=== PATIENT | male | born 1950 | race Caucasian/White ===

== ENCOUNTER 2022-03-11 14:56 | Inpatient (IN) ==
--- NOTE | 2022-03-11 15:08 | Emergency Department Note ---
Weakness HPI <Segun FarrellSARAI - Last Filed: 03/11/22 20:06> General Chief complaint: Weakness Stated complaint: lethargic, confusion Time Seen by Provider: 03/11/22 15:00 Mode of arrival: EMS Limitations: altered mental status History of Present Illness HPI Narrative: Narrative: Patient is a 71-year-old male who comes into the emergency department today by EMS due to confusion and family has noticed that he is tired. Patient has history of carotid arthrosclerosis, coronary artery disease, chronic kidney disease on hemodialysis, and subdural hematoma in 2018. Patient recently had COVID-19 a couple weeks ago and is slowly recovering from this. His daughter is with him today, and she reports that the patient has had slowly increasing drowsiness and mild confusion over the last couple of days. She states on Saturday last week patient was prescribed tramadol and baclofen by his PCP which is a new medication for him, and he started taking a couple doses of this over the weekend for pain. Patient's daughter reports that he has not had any falls or injuries. Patient denies having any falls that he is aware of. Patient has went to hemodialysis and has not had any other medication changes. He has not had any fevers or chills. He denies any chest pain, shortness of breath, or difficulty breathing. He has not had any abdominal pain and his appetite has been normal. He denies any headaches today or vision changes. Patient denies any numbness or tingling. Related Data Home Medications Medication Instructions Recorded Confirmed aspirin 81 mg tablet,delayed 81 mg PO QDAY tab 03/04/15 03/11/22 release primidone 50 mg tablet 75 mg PO BID tab 03/29/20 03/11/22 clopidogrel 75 mg tablet (Plavix) 75 mg PO QDAY 03/22/21 03/11/22 lisinopril 5 mg tablet 5 mg PO QDAY 03/09/22 03/11/22 sucroferric oxyhydroxide 500 mg 500 mg PO TID 03/11/22 03/11/22 chewable tablet (Velphoro) Previous Rx's Medication Instructions Recorded CPAP Machine and Associated #1 each 11/14/17 supplies pantoprazole 40 mg tablet,delayed 40 mg PO BID 60 Days #120 tab 12/22/20 release atorvastatin 40 mg tablet (Lipitor) 40 mg PO QDAY #90 tab 11/29/21 metoprolol succinate 25 mg 12.5 mg PO QDAY #60 tab 02/15/22 tablet,extended release 24 hr baclofen 5 mg tablet 5 mg PO TID PRN #20 tab 03/09/22 budesonide 90 mcg/actuation breath 2 inh INHALATION BID #1 ea 03/09/22 activated powder inhaler (Pulmicort Flexhaler) tramadol 50 mg tablet 50 mg PO BID PRN #30 tab 03/09/22 Allergies Allergy/AdvReac Type Severity Reaction Status Date / Time morphine AdvReac Mild Nausea Verified 03/09/22 16:01 Review of Systems <SARAI Vergara - Last Filed: 03/11/22 20:06> ROS ROS Narrative: Narrative: All systems ED: reviewed and negative except as stated. PFSH <SARAI Vergara - Last Filed: 03/11/22 20:06> Narrative Patient History Narrative: Narrative: Medical/Surgical/Family History All Active Problems (Updated 03/12/22 @ 08:33 by Odell Tavares MD) Arthritis, rheumatoid (Chronic) Bladder neck obstruction (Chronic) Carotid artery occlusion (Chronic) History of colonic polyps (Chronic) Conjunctival hemorrhage (Chronic) Coronary artery disease (Chronic) Coronary atherosclerosis (Chronic) Diabetes mellitus, type II (Chronic) Erectile dysfunction (Chronic) Gastroesophageal reflux (Chronic) Hearing loss, sensorineural (Chronic) Hyperlipidemia (Chronic) Hypertension, essential (Chronic) Hypothyroidism (acquired) (Chronic) Kidney stones (Chronic) Hx of renal calculi (Chronic) Nephrotic syndrome with pathological lesion in kidney (Chronic) Nuclear sclerosis (Chronic) Obesity (Chronic) Obstructive sleep apnea (Chronic) Peripheral neuropathy (Chronic) Retinopathy, diabetic, background (Chronic) Secondary hyperparathyroidism of renal origin (Chronic) Vitamin D deficiency (Chronic) Obstructive sleep apnea treated with continuous positive airway pressure (CPAP) (Chronic) Shoulder sprain (Chronic) Foreign body in skin (Chronic) Anemia (Chronic) Essential tremor (Chronic) Renal cyst (Chronic) Hypertension (Chronic) Sicca syndrome (Chronic) Impingement syndrome of unspecified shoulder (Chronic) Primary generalized (osteo)arthritis (Chronic) Other intervertebral disc degeneration, lumbar region (Chronic) BMI 33.0-33.9,adult (Chronic) Encounter for long-term (current) use of medications (Chronic) Back pain (Chronic) Shingles (Chronic) Rotator cuff disorder (Chronic) Joint pain (Chronic) Other mattress filler (current) drug therapy (Chronic) Encounter for long-term (current) use of high-risk medication (Chronic) Left shoulder pain (Chronic) Subdural hematoma (Chronic ~2018) Closed head injury (Chronic) Osteoarthritis (Chronic) Chest pain (Chronic) Acute coronary syndrome (Chronic) Upper GI bleeding (Chronic ~2019) Abdominal pain (Chronic) Elevated C-reactive protein (CRP) (Chronic) Trigger thumb of right hand (Chronic) ESRD on hemodialysis (Chronic) Medicare annual wellness visit, subsequent (Chronic) History of angiography (Chronic ~08/23/20) Kidney transplant candidate (Acute) Medicare annual wellness visit, subsequent (Acute) BPH associated with nocturia (Acute) Annual physical exam (Acute) Hypoxia (Acute) Fluid overload (Acute) Encounter for venous access device care (Acute) Tinea cruris (Acute) Sacroiliac joint dysfunction of right side (Acute) Status post transcatheter aortic valve replacement (Acute) Peripheral vascular disease (Acute) Post-COVID chronic cough (Acute) Acute delirium (Acute) Acute alteration in mental status (Acute) Chronic kidney disease (Acute) ESRD on hemodialysis (Chronic) Acute on chronic systolic CHF (congestive heart failure) (Acute) Medical History Anemia Annual physical exam Arthritis, rheumatoid Back pain Bladder neck obstruction BMI 33.0-33.9,adult BPH associated with nocturia Carotid artery occlusion Chronic Kidney Disease Stage V Chronic kidney disease, stage IV (severe) most recent s.creat is 4.1 which equals to egfr of 15ml/min per MDRD equation s.creat fluctuates between 3.8-4.2 recently, stable for now Patient will go for incenter dialysis when and if needed his vein mapping showed b/l narrowing of axiallry and subclavian arteries and given this we cannot pursue AVF surgery and he will need arteriogram and revascularisation procedure before this, this will need contrast which can further damage his renal function, as discussed with Dr Reeves Chronic kidney disease, stage V Conjunctival hemorrhage Coronary artery disease status post coronary artery bypass graft in 2008 Coronary atherosclerosis Coronary atherosclerosis Diabetes mellitus, type II No further hypoglycemic episodes, a1c is 5.2% He is on glipizide; he monitors what he eats; BSs are much improved with FBS of ~ 120 ct with current meds Will monitor Encounter for long-term (current) use of high-risk medication Encounter for long-term (current) use of medications Erectile dysfunction ESRD on hemodialysis Foreign body in skin Gastroesophageal reflux Hearing loss, sensorineural History of colonic polyps Hx of renal calculi Hyperlipidemia Hypertension Hypertension, essential Hypothyroidism (acquired) Impingement syndrome of unspecified shoulder Joint pain Kidney stones Left shoulder pain Medicare annual wellness visit, subsequent Medicare annual wellness visit, subsequent Nephrotic syndrome with pathological lesion in kidney Nuclear sclerosis Obesity Obstructive sleep apnea Obstructive sleep apnea treated with continuous positive airway pressure (CPAP) Osteoarthritis Other intervertebral disc degeneration, lumbar region Other mattress filler (current) drug therapy Peripheral neuropathy Postural hypotension Primary generalized (osteo)arthritis Renal cyst Retinopathy, diabetic, background Rotator cuff disorder Secondary hyperparathyroidism of renal origin Shingles Shoulder sprain Sicca syndrome Tinea cruris Trigger thumb of right hand Vitamin D deficiency Surgical History H/O coronary angiogram (~08/23/20) H/O renal calculi right removal History of angiography (~08/23/20) Left subclavian, PCI to the PDA via the patent saphenous vein graft with a 2.25 x 24 Synergy drug-eluting stent History of carotid endarterectomy bilateral in 2008 History of left heart catheterization (LHC) (12/29/17) left heart cath, ventricular angiography, internal mammary artery graft angiopraphy History of right-sided carotid endarterectomy (~2008) History of surgery (01/30/16) Bilateral upper extremity vein mapping History of surgery (04/25/17) 01/10/2017 Fistulogram; 04/25/2017 Fistulogram, catheter placement - attempted dialysis access declot History of transcatheter aortic valve replacement (TAVR) (01/09/22) Hx of arthroscopy of right knee Hx of CABG (~01/2009) 3 vessel Hx of colonoscopy 12/19/2009 Family History Father , 67 Diabetes mellitus DMII. has Heart disease sister Malignant neoplasm Grandmother Rheumatoid arthritis Family/Other Hypertension Stroke Other Kidney stone Social History Smoking Status: Former smoker Alcohol Intake Frequency: former alcohol drinker Substance Use: does not use Exam <Miles SARAI Adkins - Last Filed: 03/11/22 20:06> Narrative Narrative: Narrative: General Limitations: altered mental status General appearance: Present alert, in no apparent distress and sleepy Head Head: Present atraumatic and normocephalic Eye Eye: Present normal appearance, PERRL and EOMI; Absent scleral icterus, conjunctival injection or nystagmus ENT ENT: Present normal oropharynx Neck Neck: Present normal inspection and full ROM; Absent meningismus Chest Chest: Present normal inspection and symmetric chest wall rise Respiratory Respiratory: Present normal lung sounds bilaterally and rales/crackles (Mild crackles bilateral lower lobes.); Absent respiratory distress, wheezes or accessory muscle use Cardiovascular Cardiovascular: Present regular rate, normal rhythm, normal heart sounds and other (Bruit auscultated and thrill palpated to the fistula right arm.); Absent systolic murmur or diastolic murmur Adbominal Abdominal: Present soft and normal bowel sounds; Absent distention, tenderness, guarding, rebound, rigidity, organomegaly, Ragland's sign or ascites Extremities Extremities: Present normal inspection, full ROM, normal capillary refill and pedal edema (2+); Absent calf tenderness or cyanosis Back Back: Present normal inspection and full ROM; Absent CVA tenderness (R), CVA tenderness (L) or spinous process tenderness Neurological Neurological: Present alert and CN II-XII intact; Absent motor sensory deficit Expanded Neurological Patient oriented to: Present person and place; Absent time Speech: Present fluid speech CRANIAL NERVES: EOM function (II, III, IV, ): Normal, facial sensation (V): N ormal, facial palsy (VII): Normal, gag reflex (IX): Normal, spinal accessory function (XI): Normal and tongue deviation (XII): Normal CEREBELLAR FUNCTION: finger to nose: Normal and heel to liu: Normal Motor strength - LUE: 5/5 Motor strength - RUE: 5/5 Motor strength - LLE: 5/5 Motor strength - RLE: 5/5 SENSORY EXAM UPPER EXTREMITY: Normal: light touch SENSORY EXAM LOWER EXTREMITY: Normal: light touch Coma Scale Eye Opening: To Voice Coma Scale Motor Response: Obeys Commands Coma Scale Verbal Response: Confused Coma Scale Total: 13 Skin Skin: Present warm (WNL), dry and normal color <Chris Keene MD - Last Filed: 03/12/22 15:16> Expanded Neurological Coma Scale Total: 13 Course <SARAI Vergara - Last Filed: 03/11/22 20:06> Vital Signs Vital signs: Vital Signs Temperature 98.2 F 03/11/22 15:08 Pulse Rate 87 03/11/22 15:08 Respiratory Rate 16 03/11/22 15:08 Blood Pressure 136/98 03/11/22 15:08 Pulse Oximetry (%) 95 03/11/22 15:08 Temperature 98.4 F 03/12/22 12:45 Pulse Rate 93 H 03/12/22 15:00 Respiratory Rate 14 03/12/22 12:00 Blood Pressure 151/64 03/12/22 15:00 Pulse Oximetry (%) 97 03/12/22 12:00 <Chris Keene MD - Last Filed: 03/12/22 15:16> Vital Signs Vital signs: Vital Signs Temperature 98.2 F 03/11/22 15:08 Pulse Rate 87 03/11/22 15:08 Respiratory Rate 16 03/11/22 15:08 Blood Pressure 136/98 03/11/22 15:08 Pulse Oximetry (%) 95 03/11/22 15:08 Temperature 98.4 F 03/12/22 12:45 Pulse Rate 93 H 03/12/22 15:00 Respiratory Rate 14 03/12/22 12:00 Blood Pressure 151/64 03/12/22 15:00 Pulse Oximetry (%) 97 03/12/22 12:00 MDM <SARAI Vergara - Last Filed: 03/11/22 20:06> MDM Narrative Medical decision making narrative: Narrative: Patient is a 71-year-old male who arrived by EMS today after his family had noticed increased lethargic and confusion over the last 48 hours. FAST exam today is negative. Proceeded with noncontrast head CT, labs, and EKG. Patient recently was prescribed tramadol by his primary care provider, and patient was given 0.4 mg of IV Narcan today. I was able to review the prescription monitori ng report, and patient does not receive any chronic opiate prescription that likely would not cause any precipitated withdrawal syndrome with the patient. After administering the Narcan patient did not appear to slightly become more responsive. This however did not last very long. Noncontrast head CT today was read by Dr. Soni, and called with results indicating that the noncontrast head CT is negative for any acute finding. Chest x-ray shows moderate CHF without any infiltrate or other abnormality. EKG today did not show any acute coronary syndrome findings. Patient's sinus rhythm with left bundle branch block. CBC shows mild anemia likely related from chronic kidney disease which does show some improvement from a month ago when compared to previous labs. No leukocytosis. Patient's blood gas shows mild respiratory alkalosis. Patient's oxygen saturations are around 90% on room air. Patient was given 2 L of O2 today. Patient's lactic acid is 1.1. No significant electrolyte abnormality on his CMP. Alkaline phos 149 with AST 14 and ALT 10. Ammonia level is 33. TSH and free T4 normal. There does not appear to be any metabolic sign of the acute delirium seen on his work-up today. I was able to consult with Dr. Tavares who is on-call today for nephrology. He does report that this patient does see Dr. Dias, but he does agree that if patient needs hemodialysis today we will plan on hemodialysis tomorrow as an inpatient if he is admitted. I Was able to speak with the intern product marketing manager, and my clinical impression today is possible delirium related to the tramadol and baclofen use that he had recently started as this is poorly hemodialyzed. Nephrology recommended do not give any other sedating medication to the patient during the hospitalization stay if he is admitted. He would agree to completing hemodialysis tomorrow as needed for the patient. I had consulted with the hospitalist, Dr. Sherman here at [facility] today, and he does except to admit patient to the hospital today inpatient MedSurg. Lab Data Result diagrams: 03/12/22 05:28 03/12/22 05:28 Labs: Lab Results 03/11/22 03/11/22 03/11/22 Range/Units 15:24 15:24 15:24 WBC 8.1 (4.5-11.0) K/mcL RBC 3.19 L (4.63-6.08) M/mcL Hgb 9.8 L (13.7-17.5) g/dL Hct 32.6 L (40.1-51.0) % MCV 102.2 H (80.0-100.0) fL MCH 30.7 (26.0-34.0) pg MCHC 30.1 L (31.0-36.0) g/dL RDW 21.5 H (11.5-14.5) % Plt Count 279 (140-440) K/mcL MPV 10.1 (7.4-10.4) fL Neut % (Auto) 72.1 (38.0-78.0) % Lymph % (Auto) 13.6 L (15.5-49.0) % [place] % (Auto) 12.0 (1.0-12.0) % Eos % (Auto) 1.4 (0.0-7.0) % Baso % (Auto) 0.9 (0.0-2.0) % Lymph # (Auto) 1.10 L (1.50-4.80) K/mcL [place] # (Auto) 0.97 H (0.10-0.90) K/mcL Eos # (Auto) 0.11 (0.00-0.70) K/mcL Baso # (Auto) 0.07 (0.00-0.30) K/mcL Absolute Neutrophils 5.82 (1.80-8.00) K/mcL POC VBG pH (7.32-7.42) POC VBG pCO2 at Temp (41-51) POC VBG pO2 (25-40) POC VBG HCO3 (24-28) POC VBG Total CO2 (25-29) POC Venous O2 Sat (40-70) POC VBG Base Excess (-2-2) VBG Lactic Acid 1.1 (0.5-2.0) mmol/L Sodium 137 (133-145) mmol/L Potassium 3.4 (3.3-5.1) mmol/L Chloride 96 (96-108) mmol/L Carbon Dioxide 28 (22-30) mmol/L Anion Gap 13.0 (8.0-16.0) BUN 36 H (8-23) mg/dL Creatinine 5.9 H* (0.7-1.2) mg/dL GFR Calculation 9 Glucose 122 H (70-105) mg/dL POC Venous Lactate (0.5-2) Calcium 8.4 L (8.6-10.4) mg/dL Total Bilirubin 0.6 (0.1-1.0) mg/dL AST 14 (<40) U/L ALT 10 (<40) U/L Alkaline Phosphatase 149 H (39-117) U/L Ammonia (16-60) umol/L Total Protein 7.7 (5.9-8.4) gm/dL Albumin 3.5 (3.2-5.2) gm/dL Globulin 4.2 H (2.2-3.7) gm/dL Albumin/Globulin Ratio 0.8 L (1.0-2.3) TSH (0.27-5.01) uIU/mL Free T4 (0.93-1.70) ng/dL Acetaminophen ug/mL Ethyl Alcohol mg/dL < 10.0 mg/dL Ethyl Alcohol g/dL < 0.010 (<0.010) gm/dL 03/11/22 03/11/22 03/11/22 Range/Units 15:24 15:33 15:33 WBC (4.5-11.0) K/mcL RBC (4.63-6.08) M/mcL Hgb (13.7-17.5) g/dL Hct (40.1-51.0) % MCV (80.0-100.0) fL MCH (26.0-34.0) pg MCHC (31.0-36.0) g/dL RDW (11.5-14.5) % Plt Count (140-440) K/mcL MPV (7.4-10.4) fL Neut % (Auto) (38.0-78.0) % Lymph % (Auto) (15.5-49.0) % [place] % (Auto) (1.0-12.0) % Eos % (Auto) (0.0-7.0) % Baso % (Auto) (0.0-2.0) % Lymph # (Auto) (1.50-4.80) K/mcL [place] # (Auto) (0.10-0.90) K/mcL Eos # (Auto) (0.00-0.70) K/mcL Baso # (Auto) (0.00-0.30) K/mcL Absolute Neutrophils (1.80-8.00) K/mcL POC VBG pH (7.32-7.42) POC VBG pCO2 at Temp (41-51) POC VBG pO2 (25-40) POC VBG HCO3 (24-28) POC VBG Total CO2 (25-29) POC Venous O2 Sat (40-70) POC VBG Base Excess (-2-2) VBG Lactic Acid (0.5-2.0) mmol/L Sodium (133-145) mmol/L Potassium (3.3-5.1) mmol/L Chloride (96-108) mmol/L Carbon Dioxide (22-30) mmol/L Anion Gap (8.0-16.0) BUN (8-23) mg/dL Creatinine (0.7-1.2) mg/dL GFR Calculation Glucose (70-105) mg/dL POC Venous Lactate (0.5-2) Calcium (8.6-10.4) mg/dL Total Bilirubin (0.1-1.0) mg/dL AST (<40) U/L ALT (<40) U/L Alkaline Phosphatase (39-117) U/L Ammonia 33 (16-60) umol/L Total Protein (5.9-8.4) gm/dL Albumin (3.2-5.2) gm/dL Globulin (2.2-3.7) gm/dL Albumin/Globulin Ratio (1.0-2.3) TSH 0.70 (0.27-5.01) uIU/mL Free T4 1.29 (0.93-1.70) ng/dL Acetaminophen < 5.0 ug/mL Ethyl Alcohol mg/dL mg/dL Ethyl Alcohol g/dL (<0.010) gm/dL 03/11/22 Range/Units 15:55 WBC (4.5-11.0) K/mcL RBC (4.63-6.08) M/mcL Hgb (13.7-17.5) g/dL Hct (40.1-51.0) % MCV (80.0-100.0) fL MCH (26.0-34.0) pg MCHC (31.0-36.0) g/dL RDW (11.5-14.5) % Plt Count (140-440) K/mcL MPV (7.4-10.4) fL Neut % (Auto) (38.0-78.0) % Lymph % (Auto) (15.5-49.0) % [place] % (Auto) (1.0-12.0) % Eos % (Auto) (0.0-7.0) % Baso % (Auto) (0.0-2.0) % Lymph # (Auto) (1.50-4.80) K/mcL [place] # (Auto) (0.10-0.90) K/mcL Eos # (Auto) (0.00-0.70) K/mcL Baso # (Auto) (0.00-0.30) K/mcL Absolute Neutrophils (1.80-8.00) K/mcL POC VBG pH 7.50 H (7.32-7.42) POC VBG pCO2 at Temp 40.2 L (41-51) POC VBG pO2 52 H (25-40) POC VBG HCO3 31.1 H (24-28) POC VBG Total CO2 32.0 H (25-29) POC Venous O2 Sat 89.0 H (40-70) POC VBG Base Excess 8.0 H* (-2-2) VBG Lactic Acid (0.5-2.0) mmol/L Sodium (133-145) mmol/L Potassium (3.3-5.1) mmol/L Chloride (96-108) mmol/L Carbon Dioxide (22-30) mmol/L Anion Gap (8.0-16.0) BUN (8-23) mg/dL Creatinine (0.7-1.2) mg/dL GFR Calculation Glucose (70-105) mg/dL POC Venous Lactate 0.9 (0.5-2) Calcium (8.6-10.4) mg/dL Total Bilirubin (0.1-1.0) mg/dL AST (<40) U/L ALT (<40) U/L Alkaline Phosphatase (39-117) U/L Ammonia (16-60) umol/L Total Protein (5.9-8.4) gm/dL Albumin (3.2-5.2) gm/dL Globulin (2.2-3.7) gm/dL Albumin/Globulin Ratio (1.0-2.3) TSH (0.27-5.01) uIU/mL Free T4 (0.93-1.70) ng/dL Acetaminophen ug/mL Ethyl Alcohol mg/dL mg/dL Ethyl Alcohol g/dL (<0.010) gm/dL Radiology Data Radiology results reviewed: Yes I reviewed the patient's radiology results. Radiology results narrative: Ordering Physician:Segun Farrell Date of Service:03/11/22 Procedure(s):CT head/brain wo con CLINICAL INFORMATION: Effusion COMPARISON: Brain MRI 09/12/2018 TECHNIQUE: 2.5 mm helical slices were obtained in the skull base to vertex. Following reconstruction, axial reformatted images were reviewed at bone and parenchymal windows. The exam was performed using radiation dose optimization techniques including, but not limited to, automated exposure control, adjustment of the mA and/or kV according to patient size and use of iterative reconstruction technique. FINDINGS: The ventricles, sulci, fissures, and cisterns are symmetrically enlarged compatible with mild age-related atrophy. No extra-axial fluid collections are identified. Mild patchy chronic ischemic changes, in the deep cerebral white matter, are expected for age. There is no hemorrhage, mass effect, or edema. Bone windows show no osseous abnormality. IMPRESSION: Mild atrophy and chronic ischemic changes in the deep cerebral white matter-expected for age. No acute findings Moderate mucosal thickening of the ethmoid sinuses. Mild mucosal thickening both frontal sinuses. Interpreted and Authenticated by: Edurado Soni 03/11/22 Ordering Physician:Segun Farrell Date of Service:03/11/22 Procedure(s):XR chest 1V portable CLINICAL INFORMATION: Confusion COMPARISON: 03/03/2022 TECHNIQUE: Portable FINDINGS: Sternotomy changes again noted. Heart has increased in size and is now moderately enlarged. Mediastinum is normal. Pulmonary vessels are moderately distended and there is moderate peribronchial vascular edema. Mild bibasilar atelectasis noted. Tiny bilateral pleural effusions appreciated. IMPRESSION: Moderate CHF Interpreted and Authenticated by: Eduardo Soni 03/11/22 <Chris Keene MD - Last Filed: 03/12/22 15:16> Lab Data Labs: Lab Results 03/11/22 03/11/22 03/11/22 Range/Units 15:24 15:24 15:24 WBC 8.1 (4.5-11.0) K/mcL RBC 3.19 L (4.63-6.08) M/mcL Hgb 9.8 L (13.7-17.5) g/dL Hct 32.6 L (40.1-51.0) % MCV 102.2 H (80.0-100.0) fL MCH 30.7 (26.0-34.0) pg MCHC 30.1 L (31.0-36.0) g/dL RDW 21.5 H (11.5-14.5) % Plt Count 279 (140-440) K/mcL MPV 10.1 (7.4-10.4) fL Neut % (Auto) 72.1 (38.0-78.0) % Lymph % (Auto) 13.6 L (15.5-49.0) % [place] % (Auto) 12.0 (1.0-12.0) % Eos % (Auto) 1.4 (0.0-7.0) % Baso % (Auto) 0.9 (0.0-2.0) % Lymph # (Auto) 1.10 L (1.50-4.80) K/mcL [place] # (Auto) 0.97 H (0.10-0.90) K/mcL Eos # (Auto) 0.11 (0.00-0.70) K/mcL Baso # (Auto) 0.07 (0.00-0.30) K/mcL Absolute Neutrophils 5.82 (1.80-8.00) K/mcL POC VBG pH (7.32-7.42) POC VBG pCO2 at Temp (41-51) POC VBG pO2 (25-40) POC VBG HCO3 (24-28) POC VBG Total CO2 (25-29) POC Venous O2 Sat (40-70) POC VBG Base Excess (-2-2) VBG Lactic Acid 1.1 (0.5-2.0) mmol/L Sodium 137 (133-145) mmol/L Potassium 3.4 (3.3-5.1) mmol/L Chloride 96 (96-108) mmol/L Carbon Dioxide 28 (22-30) mmol/L Anion Gap 13.0 (8.0-16.0) BUN 36 H (8-23) mg/dL Creatinine 5.9 H* (0.7-1.2) mg/dL GFR Calculation 9 Glucose 122 H (70-105) mg/dL POC Venous Lactate (0.5-2) Calcium 8.4 L (8.6-10.4) mg/dL Total Bilirubin 0.6 (0.1-1.0) mg/dL AST 14 (<40) U/L ALT 10 (<40) U/L Alkaline Phosphatase 149 H (39-117) U/L Ammonia (16-60) umol/L Total Protein 7.7 (5.9-8.4) gm/dL Albumin 3.5 (3.2-5.2) gm/dL Globulin 4.2 H (2.2-3.7) gm/dL Albumin/Globulin Ratio 0.8 L (1.0-2.3) TSH (0.27-5.01) uIU/mL Free T4 (0.93-1.70) ng/dL Acetaminophen ug/mL Ethyl Alcohol mg/dL < 10.0 mg/dL Ethyl Alcohol g/dL < 0.010 (<0.010) gm/dL 03/11/22 03/11/22 03/11/22 Range/Units 15:24 15:33 15:33 WBC (4.5-11.0) K/mcL RBC (4.63-6.08) M/mcL Hgb (13.7-17.5) g/dL Hct (40.1-51.0) % MCV (80.0-100.0) fL MCH (26.0-34.0) pg MCHC (31.0-36.0) g/dL RDW (11.5-14.5) % Plt Count (140-440) K/mcL MPV (7.4-10.4) fL Neut % (Auto) (38.0-78.0) % Lymph % (Auto) (15.5-49.0) % [place] % (Auto) (1.0-12.0) % Eos % (Auto) (0.0-7.0) % Baso % (Auto) (0.0-2.0) % Lymph # (Auto) (1.50-4.80) K/mcL [place] # (Auto) (0.10-0.90) K/mcL Eos # (Auto) (0.00-0.70) K/mcL Baso # (Auto) (0.00-0.30) K/mcL Absolute Neutrophils (1.80-8.00) K/mcL POC VBG pH (7.32-7.42) POC VBG pCO2 at Temp (41-51) POC VBG pO2 (25-40) POC VBG HCO3 (24-28) POC VBG Total CO2 (25-29) POC Venous O2 Sat (40-70) POC VBG Base Excess (-2-2) VBG Lactic Acid (0.5-2.0) mmol/L Sodium (133-145) mmol/L Potassium (3.3-5.1) mmol/L Chloride (96-108) mmol/L Carbon Dioxide (22-30) mmol/L Anion Gap (8.0-16.0) BUN (8-23) mg/dL Creatinine (0.7-1.2) mg/dL GFR Calculation Glucose (70-105) mg/dL POC Venous Lactate (0.5-2) Calcium (8.6-10.4) mg/dL Total Bilirubin (0.1-1.0) mg/dL AST (<40) U/L ALT (<40) U/L Alkaline Phosphatase (39-117) U/L Ammonia 33 (16-60) umol/L Total Protein (5.9-8.4) gm/dL Albumin (3.2-5.2) gm/dL Globulin (2.2-3.7) gm/dL Albumin/Globulin Ratio (1.0-2.3) TSH 0.70 (0.27-5.01) uIU/mL Free T4 1.29 (0.93-1.70) ng/dL Acetaminophen < 5.0 ug/mL Ethyl Alcohol mg/dL mg/dL Ethyl Alcohol g/dL (<0.010) gm/dL 03/11/22 Range/Units 15:55 WBC (4.5-11.0) K/mcL RBC (4.63-6.08) M/mcL Hgb (13.7-17.5) g/dL Hct (40.1-51.0) % MCV (80.0-100.0) fL MCH (26.0-34.0) pg MCHC (31.0-36.0) g/dL RDW (11.5-14.5) % Plt Count (140-440) K/mcL MPV (7.4-10.4) fL Neut % (Auto) (38.0-78.0) % Lymph % (Auto) (15.5-49.0) % [place] % (Auto) (1.0-12.0) % Eos % (Auto) (0.0-7.0) % Baso % (Auto) (0.0-2.0) % Lymph # (Auto) (1.50-4.80) K/mcL [place] # (Auto) (0.10-0.90) K/mcL Eos # (Auto) (0.00-0.70) K/mcL Baso # (Auto) (0.00-0.30) K/mcL Absolute Neutrophils (1.80-8.00) K/mcL POC VBG pH 7.50 H (7.32-7.42) POC VBG pCO2 at Temp 40.2 L (41-51) POC VBG pO2 52 H (25-40) POC VBG HCO3 31.1 H (24-28) POC VBG Total CO2 32.0 H (25-29) POC Venous O2 Sat 89.0 H (40-70) POC VBG Base Excess 8.0 H* (-2-2) VBG Lactic Acid (0.5-2.0) mmol/L Sodium (133-145) mmol/L Potassium (3.3-5.1) mmol/L Chloride (96-108) mmol/L Carbon Dioxide (22-30) mmol/L Anion Gap (8.0-16.0) BUN (8-23) mg/dL Creatinine (0.7-1.2) mg/dL GFR Calculation Glucose (70-105) mg/dL POC Venous Lactate 0.9 (0.5-2) Calcium (8.6-10.4) mg/dL Total Bilirubin (0.1-1.0) mg/dL AST (<40) U/L ALT (<40) U/L Alkaline Phosphatase (39-117) U/L Ammonia (16-60) umol/L Total Protein (5.9-8.4) gm/dL Albumin (3.2-5.2) gm/dL Globulin (2.2-3.7) gm/dL Albumin/Globulin Ratio (1.0-2.3) TSH (0.27-5.01) uIU/mL Free T4 (0.93-1.70) ng/dL Acetaminophen ug/mL Ethyl Alcohol mg/dL mg/dL Ethyl Alcohol g/dL (<0.010) gm/dL Discharge Plan Patient/Caregiver Discharge Instructions Pt seen by [facility] CERTIFIED CONCIERGE/PA only: No Clinical Impression: Acute delirium, Acute alteration in mental status, Chronic kidney disease Patient Disposition: Xfer As Inpt ([facility]) Condition: Fair Discharge Date/Time: 03/11/22 21:21 Discharge Comment: Med/Surg 125 @ [id number]
[2022-03-11] MEDS ORDERED: NALOXONE HCL 0.4 MG/ML VIAL IV ONE (15:34)
[2022-03-11 16:08] LABS: Basophils # (Auto) 0.07 K/mcL (0.00-0.30); Basophils % (Auto) 0.9 % (0.0-2.0); Eosinophils # (Auto) 0.11 K/mcL (0.00-0.70); Eosinophils % (Auto) 1.4 % (0.0-7.0); Hematocrit 32.6 % (40.1-51.0); Hemoglobin 9.8 g/dL (13.7-17.5); Lymphocytes % (Auto) 13.6 % (15.5-49.0); Mean Cell Volume 102.2 fL (80.0-100.0); Mean Corpuscular HGB Conc 30.1 g/dL (31.0-36.0); Mean Platelet Volume 10.1 fL (7.4-10.4); Monocytes # (Auto) 0.97 K/mcL (0.10-0.90); Neutrophils % (Auto) 72.1 % (38.0-78.0); Platelet Count 279 K/mcL (140-440); RBC 3.19 M/mcL (4.63-6.08); Red Cell Distribution Width 21.5 % (11.5-14.5); WBC 8.1 K/mcL (4.5-11.0)
[2022-03-11 16:21] LABS: Alcohol, Blood < 10.0 mg/dL; Alcohol,Blood < 0.010 gm/dL (<0.010)
[2022-03-11 16:30] LABS: ALT/SGPT 10 U/L (<40); AST/SGOT 14 U/L (<40); Albumin 3.5 gm/dL (3.2-5.2); Albumin/Globulin Ratio 0.8 (1.0-2.3); Alkaline Phosphatase 149 U/L (39-117); Bilirubin,Total 0.6 mg/dL (0.1-1.0); Blood Urea Nitrogen 36 mg/dL (8-23); Calcium 8.4 mg/dL (8.6-10.4); Carbon Dioxide 28 mmol/L (22-30); Chloride 96 mmol/L (96-108); Globulin 4.2 gm/dL (2.2-3.7); Glomerular Filtration Rate 9; Glucose 122 mg/dL (70-105)
[2022-03-11 16:39] LABS: Free T4 (Free Thyroxine) 1.29 ng/dL (0.93-1.70); Thyroid Stimulating Hormone 0.7 uIU/mL (0.27-5.01)
--- NOTE | 2022-03-11 18:46 | XRay Report ---
CLINICAL INFORMATION: Confusion COMPARISON: 03/03/2022 TECHNIQUE: Portable FINDINGS: Sternotomy changes again noted. Heart has increased in size and is now moderately enlarged. Mediastinum is normal. Pulmonary vessels are moderately distended and there is moderate peribronchial vascular edema. Mild bibasilar atelectasis noted. Tiny bilateral pleural effusions appreciated. IMPRESSION: Moderate CHF Interpreted and Authenticated by: Eduardo Soni 03/11/22
--- NOTE | 2022-03-11 18:49 | Cat Scan Report ---
CLINICAL INFORMATION: Effusion COMPARISON: Brain MRI 09/12/2018 TECHNIQUE: 2.5 mm helical slices were obtained in the skull base to vertex. Following reconstruction, axial reformatted images were reviewed at bone and parenchymal windows. The exam was performed using radiation dose optimization techniques including, but not limited to, automated exposure control, adjustment of the mA and/or kV according to patient size and use of iterative reconstruction technique. FINDINGS: The ventricles, sulci, fissures, and cisterns are symmetrically enlarged compatible with mild age-related atrophy. No extra-axial fluid collections are identified. Mild patchy chronic ischemic changes, in the deep cerebral white matter, are expected for age. There is no hemorrhage, mass effect, or edema. Bone windows show no osseous abnormality. IMPRESSION: Mild atrophy and chronic ischemic changes in the deep cerebral white matter-expected for age. No acute findings Moderate mucosal thickening of the ethmoid sinuses. Mild mucosal thickening both frontal sinuses. Interpreted and Authenticated by: Eduardo Soni 03/11/22
--- NOTE | 2022-03-11 18:53 | Event Note ---
Event Note Event Note: Called by ER Re 71 yr old HD patient of Dr Kerr and HD under the care of Dr Skelton. Had worsening with decreased LVEF to 35% before TAVR. Post TAVR 45-50% EF per ECHO. Plans were to add lisinopril post TAVR. Todays CXR with increased cardiomegaly and some radiographic signs of CHF Dialyzes qMWF [place] and SARs CV-19. Seen 03/09/2022 by PCP: Pt here after testing positive for Covid. He thinks he has had this for at least 2-3 weeks now. He think she was given an anti-viral originally. He continues to have a cough. He describes a tickle in his throat. He has been taking benzonatate which does not seem to work. He also has some mild SOB but he is not hypoxic. He has had hiccups for the last 1 week. He has taken something for this in the past but he cannot recall what the medication was. He has tried many meds in the past but only this one medication has worked. Apparently was given baclofen and Tramadol. In the ED today: EMS due to confusion and family has noticed that he is tired. Patient has history of carotid arthrosclerosis, coronary artery disease, chronic kidney disease on hemodialysis, and subdural hematoma in 2018. Patient recently had COVID-19 a couple weeks ago and is slowly recovering from this. His daughter is with him today, and she reports that the patient has had slowly increasing drowsiness and mild confusion over the last couple of days. She states on Saturday last week patient was prescribed tramadol by his PCP which is a new medication for him, and he started taking a couple doses of this over the weekend for pain. Patient's daughter reports that he has not had any falls or injuries. Patient denies having any falls that Vital Signs Temp Pulse Resp BP Pulse Ox 03/11/22 18:12 44 L 26 H 100 03/11/22 18:01 97 H 163/96 93 03/11/22 17:46 94 H 26 H 177/96 91 03/11/22 17:31 90 13 169/93 83 L 03/11/22 17:16 93 H 12 166/95 93 03/11/22 17:10 94 H 14 97 03/11/22 17:01 93 H 15 167/93 96 03/11/22 16:46 49 L 15 167/81 88 L 03/11/22 16:31 88 157/81 95 03/11/22 16:16 93 H 15 155/74 92 03/11/22 16:15 91 H 15 80 L 03/11/22 16:01 88 14 145/87 91 03/11/22 15:50 93 H 18 95 03/11/22 15:48 91 H 14 161/81 93 03/11/22 15:45 91 H 158/81 86 L 03/11/22 15:26 87 15 94 03/11/22 15:16 94 H 23 H 152/77 89 L 03/11/22 15:14 88 17 93 03/11/22 15:08 36.8 C 87 16 136/98 95 Intake and Output 03/11/22 03/11/22 03/11/22 05:59 13:59 21:59 Other: Weight 91.172 kg Patient Weight 03/12/22 05:59 Weight 91.172 kg Alteration in MS: Doubt prosthetic valve endocarditis Drug > Metabolic encephalopathy Need to recheck LVEF and TAVR Fx Long Covid Syndrome (triple vaxxed Sep, Oct and Jun 2021 and recent presumed Omicron SARs-CV infectionthis spring). Recommend: HD qMWF Challenge dry weight (go below 88.5) Reassess cardiac function See if he has cleared he Covid infection. Avoid Remdesivir.
[2022-03-11] MEDS ORDERED: DILTIAZEM 25 MG/5 ML VIAL IV PRN (20:18)
[2022-03-11] MEDS ORDERED: ALBUTEROL SULFATE 2.5 MG/3 ML NEBULIZER NEB PRN (20:18)
[2022-03-11] MEDS ORDERED: PROCHLORPERAZINE 10 MG/2 ML VIAL IV PRN (20:18)
[2022-03-11] MEDS ORDERED: ONDANSETRON 4 MG/2 ML VIAL IV PRN (20:18)
[2022-03-11] MEDS ORDERED: ACETAMINOPHEN 325 MG TABLET PO PRN (20:18)
[2022-03-11] MEDS ORDERED: MELATONIN 3 MG TABLET PO PRN (20:18)
[2022-03-11] MEDS ORDERED: hydrALAZINE 20 MG/ML VIAL IV PRN (20:18)
[2022-03-11] MEDS ORDERED: QUEtiapine 25 MG TABLET PO PRN (20:18)
[2022-03-11] MEDS ORDERED: DEXTROSE 50% 50 ML VIAL IV PRN (21:23)
[2022-03-11] MEDS ORDERED: DEXTROSE 31 GM ORAL.SUSP PO PRN (21:23)
[2022-03-11] MEDS: SENNOSIDES 1 TABLET PO SCH (21:59)
[2022-03-11] MEDS: DOCUSATE SODIUM 100 MG CAPSULE PO SCH (21:59)
[2022-03-11] MEDS: INSULIN LISPRO 1 UNIT/0.01 ML UNIT SQ SCH (22:03)
[2022-03-11] MEDS: 0.9 % SODIUM CHLORIDE 10 ML SYRINGE IV SCH (22:03)
[2022-03-11] MEDS: HEPARIN 5,000 UNIT/ML VIAL SQ SCH (22:11)
--- NOTE | 2022-03-11 23:10 | Internal Med History&Physical ---
HPI History of Present Illness Patient information: Note initiated : 03/11/22 at 11:09 pm Service Date, if different from initiated Date: [] Patient: Stuart Torres a 71 y/o M admitted on 03/11/22 for lethargic, confusion. Chief Complaint: [] History of present illness: Mr. Torres is a 71 year old M This is a 71-year-old gentleman with a history of chronic systolic heart failure, status post TAVR, ESRD on dialysis, coronary artery heart disease, atherosclerosis, was brought to the ER because of worsening confusion and tiredness. Patient had worsening hiccups ill a week ago was evaluated by primary care and started on tramadol and baclofen. Patient was brought to the ER due to confusion as per the family patient appears to obtunded and admitted to our facility for further management. ER physician discussed with the nephrology and planning for dialysis. Initial work-up in the ER was unremarkable for any ischemia or infection Review of systems Unable to obtain due to confusion Physical exam Patient is oriented x1 able to answer some questions Eyes: normal appearance, no scleral icterus. Neck: full ROM Respiratory bibasilar crackles Cardiovascular: Stroke murmur S1-S2 heard GI/Abdominal: soft, nontender, no guarding. Extremities: full range of motion, nontender. Neurological: Weak bilateral extremities no focal deficit Psychiatric: No hallucinations or delusions noted Skin: warm, normal color PFSH PFSH All Active Problems (Updated 03/11/22 @ 22:38 by Odell Tavares MD) Arthritis, rheumatoid (Chronic) Bladder neck obstruction (Chronic) Carotid artery occlusion (Chronic) History of colonic polyps (Chronic) Conjunctival hemorrhage (Chronic) Coronary artery disease (Chronic) Coronary atherosclerosis (Chronic) Diabetes mellitus, type II (Chronic) Erectile dysfunction (Chronic) Gastroesophageal reflux (Chronic) Hearing loss, sensorineural (Chronic) Hyperlipidemia (Chronic) Hypertension, essential (Chronic) Hypothyroidism (acquired) (Chronic) Kidney stones (Chronic) Hx of renal calculi (Chronic) Nephrotic syndrome with pathological lesion in kidney (Chronic) Nuclear sclerosis (Chronic) Obesity (Chronic) Obstructive sleep apnea (Chronic) Peripheral neuropathy (Chronic) Retinopathy, diabetic, background (Chronic) Secondary hyperparathyroidism of renal origin (Chronic) Vitamin D deficiency (Chronic) Obstructive sleep apnea treated with continuous positive airway pressure (CPAP) (Chronic) Shoulder sprain (Chronic) Foreign body in skin (Chronic) Anemia (Chronic) Essential tremor (Chronic) Renal cyst (Chronic) Hypertension (Chronic) Sicca syndrome (Chronic) Impingement syndrome of unspecified shoulder (Chronic) Primary generalized (osteo)arthritis (Chronic) Other intervertebral disc degeneration, lumbar region (Chronic) BMI 33.0-33.9,adult (Chronic) Encounter for long-term (current) use of medications (Chronic) Back pain (Chronic) Shingles (Chronic) Rotator cuff disorder (Chronic) Joint pain (Chronic) Other long term care social worker (current) drug therapy (Chronic) Encounter for long-term (current) use of high-risk medication (Chronic) Left shoulder pain (Chronic) Subdural hematoma (Chronic ~2018) Closed head injury (Chronic) Osteoarthritis (Chronic) Chest pain (Chronic) Acute coronary syndrome (Chronic) Upper GI bleeding (Chronic ~2018) Abdominal pain (Chronic) Elevated C-reactive protein (CRP) (Chronic) Trigger thumb of right hand (Chronic) ESRD on hemodialysis (Chronic) Medicare annual wellness visit, subsequent (Chronic) History of angiography (Chronic ~08/23/20) Kidney transplant candidate (Acute) Medicare annual wellness visit, subsequent (Acute) BPH associated with nocturia (Acute) Annual physical exam (Acute) Hypoxia (Acute) Fluid overload (Acute) Encounter for venous access device care (Acute) Tinea cruris (Acute) Sacroiliac joint dysfunction of right side (Acute) Status post transcatheter aortic valve replacement (Acute) Peripheral vascular disease (Acute) Post-COVID chronic cough (Acute) Acute delirium (Acute) Acute alteration in mental status (Acute) Chronic kidney disease (Acute) ESRD on hemodialysis (Acute) Medical History Anemia Annual physical exam Arthritis, rheumatoid Back pain Bladder neck obstruction BMI 33.0-33.9,adult BPH associated with nocturia Carotid artery occlusion Chronic Kidney Disease Stage V Chronic kidney disease, stage IV (severe) most recent s.creat is 4.1 which equals to egfr of 15ml/min per MDRD equation s.creat fluctuates between 3.8-4.2 recently, stable for now Patient will go for incenter dialysis when and if needed his vein mapping showed b/l narrowing of axiallry and subclavian arteries and given this we cannot pursue AVF surgery and he will need arteriogram and revascularisation procedure before this, this will need contrast which can further damage his renal function, as discussed with Dr Reeves Chronic kidney disease, stage V Conjunctival hemorrhage Coronary artery disease status post coronary artery bypass graft in 2008 Coronary atherosclerosis Coronary atherosclerosis Diabetes mellitus, type II No further hypoglycemic episodes, a1c is 5.2% He is on glipizide; he monitors what he eats; BSs are much improved with FBS of ~ 120 ct with current meds Will monitor Encounter for long-term (current) use of high-risk medication Encounter for long-term (current) use of medications Erectile dysfunction ESRD on hemodialysis Foreign body in skin Gastroesophageal reflux Hearing loss, sensorineural History of colonic polyps Hx of renal calculi Hyperlipidemia Hypertension Hypertension, essential Hypothyroidism (acquired) Impingement syndrome of unspecified shoulder Joint pain Kidney stones Left shoulder pain Medicare annual wellness visit, subsequent Medicare annual wellness visit, subsequent Nephrotic syndrome with pathological lesion in kidney Nuclear sclerosis Obesity Obstructive sleep apnea Obstructive sleep apnea treated with continuous positive airway pressure (CPAP) Osteoarthritis Other intervertebral disc degeneration, lumbar region Other nursing home (current) drug therapy Peripheral neuropathy Postural hypotension Primary generalized (osteo)arthritis Renal cyst Retinopathy, diabetic, background Rotator cuff disorder Secondary hyperparathyroidism of renal origin Shingles Shoulder sprain Sicca syndrome Tinea cruris Trigger thumb of right hand Vitamin D deficiency Surgical History H/O coronary angiogram (~08/23/20) H/O renal calculi right removal History of angiography (~08/23/20) Left subclavian, PCI to the PDA via the patent saphenous vein graft with a 2.25 x 24 Synergy drug-eluting stent History of carotid endarterectomy bilateral in 2008 History of left heart catheterization (LHC) (12/29/17) left heart cath, ventricular angiography, internal mammary artery graft angiopraphy History of right-sided carotid endarterectomy (~2008) History of surgery (01/30/16) Bilateral upper extremity vein mapping History of surgery (04/25/17) 01/10/2017 Fistulogram; 04/25/2017 Fistulogram, catheter placement - attempted dialysis access declot History of transcatheter aortic valve replacement (TAVR) (01/09/22) Hx of arthroscopy of right knee Hx of CABG (~01/2009) 3 vessel Hx of colonoscopy 12/19/2009 Family History Father , 67 Diabetes mellitus DMII. 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 [employer] other: 2 children physical activity: none alcohol intake frequency: former alcohol drinker substance use type: does not use MEDS/ALLERGIES Home Medications and Allergies Home Medications Medication Instructions Recorded Confirmed Type aspirin 81 mg tablet,delayed 81 mg PO QDAY tab 03/04/15 03/11/22 History release CPAP Machine and Associated #1 each 11/14/17 03/11/22 Rx supplies primidone 50 mg tablet 75 mg PO BID tab 03/29/20 03/11/22 History pantoprazole 40 mg tablet,delayed 40 mg PO BID 60 Days #120 tab 12/22/20 03/11/22 Rx release clopidogrel 75 mg tablet (Plavix) 75 mg PO QDAY 03/22/21 03/11/22 History atorvastatin 40 mg tablet (Lipitor) 40 mg PO QDAY #90 tab 11/29/21 03/11/22 Rx metoprolol succinate 25 mg 12.5 mg PO QDAY #60 tab 02/15/22 03/11/22 Rx tablet,extended release 24 hr baclofen 5 mg tablet 5 mg PO TID PRN #20 tab 03/09/22 03/11/22 Rx budesonide 90 mcg/actuation breath 2 inh INHALATION BID #1 ea 03/09/22 03/11/22 Rx activated powder inhaler (Pulmicort Flexhaler) lisinopril 5 mg tablet 5 mg PO QDAY 03/09/22 03/11/22 History tramadol 50 mg tablet 50 mg PO BID PRN #30 tab 03/09/22 03/11/22 Rx sucroferric oxyhydroxide 500 mg 500 mg PO TID 03/11/22 03/11/22 History chewable tablet (Velphoro) Allergies Allergy/AdvReac Type Severity Reaction Status Date / Time morphine AdvReac Mild Nausea Verified 03/09/22 16:01 EXAM Constitutional Vitals: Temp Pulse Resp BP Pulse Ox 97.8 F 87 16 145/79 94 03/11/22 21:25 03/11/22 21:25 03/11/22 21:25 03/11/22 21:25 03/11/22 21:25 DATA Data Completed and Pending Labs: Labs from last 24 hours 03/11/22 03/11/22 03/11/22 15:55 15:33 15:33 WBC RBC Hgb Hct MCV MCH MCHC RDW Plt Count MPV Neut % (Auto) Lymph % (Auto) [place] % (Auto) Eos % (Auto) Baso % (Auto) Lymph # (Auto) [place] # (Auto) Eos # (Auto) Baso # (Auto) Absolute Neutrophils POC VBG pH 7.50 H POC VBG pCO2 at Temp 40.2 L POC VBG pO2 52 H POC VBG HCO3 31.1 H POC VBG Total CO2 32.0 H POC Venous O2 Sat 89.0 H POC VBG Base Excess 8.0 H* VBG Lactic Acid Sodium Potassium Chloride Carbon Dioxide Anion Gap BUN Creatinine GFR Calculation Glucose POC Venous Lactate 0.9 Calcium Total Bilirubin AST ALT Alkaline Phosphatase Ammonia Total Protein Albumin Globulin Albumin/Globulin Ratio TSH 0.70 Free T4 1.29 Acetaminophen < 5.0 Ethyl Alcohol mg/dL Ethyl Alcohol g/dL 03/11/22 03/11/22 03/11/22 15:24 15:24 15:24 WBC 8.1 RBC 3.19 L Hgb 9.8 L Hct 32.6 L MCV 102.2 H MCH 30.7 MCHC 30.1 L RDW 21.5 H Plt Count 279 MPV 10.1 Neut % (Auto) 72.1 Lymph % (Auto) 13.6 L [place] % (Auto) 12.0 Eos % (Auto) 1.4 Baso % (Auto) 0.9 Lymph # (Auto) 1.10 L [place] # (Auto) 0.97 H Eos # (Auto) 0.11 Baso # (Auto) 0.07 Absolute Neutrophils 5.82 POC VBG pH POC VBG pCO2 at Temp POC VBG pO2 POC VBG HCO3 POC VBG Total CO2 POC Venous O2 Sat POC VBG Base Excess VBG Lactic Acid 1.1 Sodium 137 Potassium 3.4 Chloride 96 Carbon Dioxide 28 Anion Gap 13.0 BUN 36 H Creatinine 5.9 H* GFR Calculation 9 Glucose 122 H POC Venous Lactate Calcium 8.4 L Total Bilirubin 0.6 AST 14 ALT 10 Alkaline Phosphatase 149 H Ammonia 33 Total Protein 7.7 Albumin 3.5 Globulin 4.2 H Albumin/Globulin Ratio 0.8 L TSH Free T4 Acetaminophen Ethyl Alcohol mg/dL Ethyl Alcohol g/dL 03/11/22 15:24 WBC RBC Hgb Hct MCV MCH MCHC RDW Plt Count MPV Neut % (Auto) Lymph % (Auto) [place] % (Auto) Eos % (Auto) Baso % (Auto) Lymph # (Auto) [place] # (Auto) Eos # (Auto) Baso # (Auto) Absolute Neutrophils POC VBG pH POC VBG pCO2 at Temp POC VBG pO2 POC VBG HCO3 POC VBG Total CO2 POC Venous O2 Sat POC VBG Base Excess VBG Lactic Acid Sodium Potassium Chloride Carbon Dioxide Anion Gap BUN Creatinine GFR Calculation Glucose POC Venous Lactate Calcium Total Bilirubin AST ALT Alkaline Phosphatase Ammonia Total Protein Albumin Globulin Albumin/Globulin Ratio TSH Free T4 Acetaminophen Ethyl Alcohol mg/dL < 10.0 Ethyl Alcohol g/dL < 0.010 A/P Narrative Plan of Treatment: Acute encephalopathy due to medications History of ESRD Patient was started on tramadol and baclofen last week Patient started tired and confused last 48 hours Plan We will continue neuro check We will hold the baclofen and tramadol Monitor mentation If he is not improving in next 48 hours obtain an MRI No signs of infections Acute congestive heart failure and ESRD ER physician consulted nephrology and planning for dialysis tomorrow mwf schedule usually Monitor electrolytes and telemetry monitoring History of chronic systolic heart failure Status post TAVR history of left ventricular ejection fraction 35% and which improved to 45 to 50% post TAVR Dialysis as mentioned Will monitor oxygenation History of vascular disease Coronary artery disease, carotid atherosclerosis, CKD on hemodialysis History of subdural hematoma in 2018 COVID-19 infection recently Patient was diagnosed with COVID-19 2 weeks ago has been recovering from it DVT prophylaxis-subcu heparin CODE STATUS-full code Expect length of stay 1-2 Time Spent With Patient Time: Total time spent is greater than 50% in coordination of care (as documented) at patient's floor/unit and/or counseling patient: QUALITY VTE Deep Vein Thrombosis/Pulmonary Embolism Present on Admission: No
[2022-03-12] MEDS: 0.9 % SODIUM CHLORIDE 10 ML SYRINGE IV SCH ×3 (05:07→21:00)
[2022-03-12 06:34] LABS: Erythrocyte Sedimentation Rate 89 mm/hr (0-20)
[2022-03-12 06:51] LABS: Basophils # (Auto) 0.09 K/mcL (0.00-0.30); Basophils % (Auto) 1.2 % (0.0-2.0); Eosinophils % (Auto) 1.4 % (0.0-7.0); Hematocrit 32.6 % (40.1-51.0); Hemoglobin 10.2 g/dL (13.7-17.5); Lymphocytes % (Auto) 14.9 % (15.5-49.0); Mean Cell Volume 103.5 fL (80.0-100.0); Mean Corpuscular HGB Conc 31.3 g/dL (31.0-36.0); Mean Platelet Volume 10.3 fL (7.4-10.4); Monocytes # (Auto) 0.85 K/mcL (0.10-0.90); Monocytes % (Auto) 11.5 % (1.0-12.0); Platelet Count 259 K/mcL (140-440); RBC 3.15 M/mcL (4.63-6.08); Red Cell Distribution Width 21.6 % (11.5-14.5); WBC 7.4 K/mcL (4.5-11.0)
[2022-03-12 07:11] LABS: Phosphorous 3.2 mg/dL (2.5-4.5)
[2022-03-12] MEDS: INSULIN LISPRO 1 UNIT/0.01 ML UNIT SQ SCH ×4 (07:29→21:00)
[2022-03-12 08:15] LABS: ALT/SGPT 9 U/L (<40); AST/SGOT 14 U/L (<40); Albumin 3.4 gm/dL (3.2-5.2); Albumin/Globulin Ratio 0.8 (1.0-2.3); Alkaline Phosphatase 143 U/L (39-117); Bilirubin,Total 0.6 mg/dL (0.1-1.0); Blood Urea Nitrogen 34 mg/dL (8-23); Calcium 8.4 mg/dL (8.6-10.4); Carbon Dioxide 26 mmol/L (22-30); Chloride 97 mmol/L (96-108); Globulin 4.1 gm/dL (2.2-3.7); Glomerular Filtration Rate 8; Glucose 89 mg/dL (70-105)
--- NOTE | 2022-03-12 08:18 | Nephrology Consult Note ---
HPI Data of Consult Patient: known to practice within the last 3 years Consult date: 03/12/22 Requesting physician: Malcolm Sherman Primary Care Provider: Jevon Kerr MD Consult Narrative Patient Information: Note initiated : 03/12/22 at 8:16 am Service Date, if different from initiated Date: [] Patient: Stuart Torres 71 y/o M admitted on 03/11/22 for lethargic, confusion. Chief Complaint: [As above] Called by ER Re 71 yr old HD patient of Dr Kerr and HD under the care of Dr Skelton. Had worsening with decreased LVEF to 35% before TAVR. Post TAVR 45-50% EF per ECHO. Plans were to add lisinopril post TAVR. Todays CXR with increased cardiomegaly and some radiographic signs of CHF Dialyzes qMWF [place] and SARs CV-19. Seen 03/09/2022 by PCP: Pt here after testing positive for Covid. He thinks he has had this for at least 2-3 weeks now. He think she was given an anti-viral originally. He continues to have a cough. He describes a tickle in his throat. He has been taking benzonatate which does not seem to work. He also has some mild SOB but he is not hypoxic. He has had hiccups for the last 1 week. He has taken something for this in the past but he cannot recall what the medication was. He has tried many meds in the past but only this one medication has worked. Apparently was given baclofen and Tramadol. In the ED today: EMS due to confusion and family has noticed that he is tired. Patient has history of carotid arthrosclerosis, coronary artery disease, chronic kidney disease on hemodialysis, and subdural hematoma in 2018. Patient recently had COVID-19 a couple weeks ago and is slowly recovering from this. His daughter is with him today, and she reports that the patient has had slowly increasing drowsiness and mild confusion over the last couple of days. She states on Saturday last week patient was prescribed tramadol by his PCP which is a new medication for him, and he started taking a couple doses of this over the weekend for pain. Patient's daughter reports that he has not had any falls or injuries. Alteration in MS: Doubt prosthetic valve endocarditis Drug > Metabolic encephalopathy Need to recheck LVEF and TAVR Fx Long Covid Syndrome (triple vaxxed Sep, Oct and Jun 2021 and recent presumed Omicron SARs-CV infectionthis spring). Recommend: HD qMWF Challenge dry weight (go below 88.5) Reassess cardiac function See if he has cleared he Covid infection. Avoid Remdesivir. Chief complaint: alteration in MS Reason for consult: ESRD cc:: CC: Malcolm Sherman MD Review of Systems ROS unobtainable: due to mental status Review of systems: Emotional lability Confusion Increased O2 requirement are all present PFSH PFSH All Active Problems (Updated 03/12/22 @ 08:33 by Odell Tavares MD) Acute on chronic systolic CHF (congestive heart failure) (Acute) ESRD on hemodialysis (Chronic) Arthritis, rheumatoid (Chronic) Bladder neck obstruction (Chronic) Carotid artery occlusion (Chronic) History of colonic polyps (Chronic) Conjunctival hemorrhage (Chronic) Coronary artery disease (Chronic) Coronary atherosclerosis (Chronic) Diabetes mellitus, type II (Chronic) Erectile dysfunction (Chronic) Gastroesophageal reflux (Chronic) Hearing loss, sensorineural (Chronic) Hyperlipidemia (Chronic) Hypertension, essential (Chronic) Hypothyroidism (acquired) (Chronic) Kidney stones (Chronic) Hx of renal calculi (Chronic) Nephrotic syndrome with pathological lesion in kidney (Chronic) Nuclear sclerosis (Chronic) Obesity (Chronic) Obstructive sleep apnea (Chronic) Peripheral neuropathy (Chronic) Retinopathy, diabetic, background (Chronic) Secondary hyperparathyroidism of renal origin (Chronic) Vitamin D deficiency (Chronic) Obstructive sleep apnea treated with continuous positive airway pressure (CPAP) (Chronic) Shoulder sprain (Chronic) Foreign body in skin (Chronic) Anemia (Chronic) Essential tremor (Chronic) Renal cyst (Chronic) Hypertension (Chronic) Sicca syndrome (Chronic) Impingement syndrome of unspecified shoulder (Chronic) Primary generalized (osteo)arthritis (Chronic) Other intervertebral disc degeneration, lumbar region (Chronic) BMI 33.0-33.9,adult (Chronic) Encounter for long-term (current) use of medications (Chronic) Back pain (Chronic) Shingles (Chronic) Rotator cuff disorder (Chronic) Joint pain (Chronic) 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 (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) Encounter for long-term (current) use of high-risk medication (Chronic) Left shoulder pain (Chronic) Subdural hematoma (Chronic ~2018) Closed head injury (Chronic) Osteoarthritis (Chronic) Chest pain (Chronic) Acute coronary syndrome (Chronic) Upper GI bleeding (Chronic ~2019) Abdominal pain (Chronic) Elevated C-reactive protein (CRP) (Chronic) Trigger thumb of right hand (Chronic) ESRD on hemodialysis (Chronic) Medicare annual wellness visit, subsequent (Chronic) History of angiography (Chronic ~08/23/20) Kidney transplant candidate (Acute) Medicare annual wellness visit, subsequent (Acute) BPH associated with nocturia (Acute) Annual physical exam (Acute) Hypoxia (Acute) Fluid overload (Acute) Encounter for venous access device care (Acute) Tinea cruris (Acute) Sacroiliac joint dysfunction of right side (Acute) Status post transcatheter aortic valve replacement (Acute) Peripheral vascular disease (Acute) Post-COVID chronic cough (Acute) Acute delirium (Acute) Acute alteration in mental status (Acute) Chronic kidney disease (Acute) Medical History Anemia Annual physical exam Arthritis, rheumatoid Back pain Bladder neck obstruction BMI 33.0-33.9,adult BPH associated with nocturia Carotid artery occlusion Chronic Kidney Disease Stage V Chronic kidney disease, stage IV (severe) most recent s.creat is 4.1 which equals to egfr of 15ml/min per MDRD equation s.creat fluctuates between 3.8-4.2 recently, stable for now Patient will go for incenter dialysis when and if needed his vein mapping showed b/l narrowing of axiallry and subclavian arteries and given this we cannot pursue AVF surgery and he will need arteriogram and revascularisation procedure before this, this will need contrast which can further damage his renal function, as discussed with Dr Reeves Chronic kidney disease, stage V Conjunctival hemorrhage Coronary artery disease status post coronary artery bypass graft in 2008 Coronary atherosclerosis Coronary atherosclerosis Diabetes mellitus, type II No further hypoglycemic episodes, a1c is 5.2% He is on glipizide; he monitors what he eats; BSs are much improved with FBS of ~ 120 ct with current meds Will monitor Encounter for long-term (current) use of high-risk medication Encounter for long-term (current) use of medications Erectile dysfunction ESRD on hemodialysis Foreign body in skin Gastroesophageal reflux Hearing loss, sensorineural History of colonic polyps Hx of renal calculi Hyperlipidemia Hypertension Hypertension, essential Hypothyroidism (acquired) Impingement syndrome of unspecified shoulder Joint pain Kidney stones Left shoulder pain Medicare annual wellness visit, subsequent Medicare annual wellness visit, subsequent Nephrotic syndrome with pathological lesion in kidney Nuclear sclerosis Obesity Obstructive sleep apnea Obstructive sleep apnea treated with continuous positive airway pressure (CPAP) Osteoarthritis Other intervertebral disc degeneration, lumbar region 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 Peripheral neuropathy Postural hypotension Primary generalized (osteo)arthritis Renal cyst Retinopathy, diabetic, background Rotator cuff disorder Secondary hyperparathyroidism of renal origin Shingles Shoulder sprain Sicca syndrome Tinea cruris Trigger thumb of right hand Vitamin D deficiency Surgical History H/O coronary angiogram (~08/23/20) H/O renal calculi right removal History of angiography (~08/23/20) Left subclavian, PCI to the PDA via the patent saphenous vein graft with a 2.25 x 24 Synergy drug-eluting stent History of carotid endarterectomy bilateral in 2008 History of left heart catheterization (LHC) (12/29/17) left heart cath, ventricular angiography, internal mammary artery graft angiopraphy History of right-sided carotid endarterectomy (~2008) History of surgery (01/30/16) Bilateral upper extremity vein mapping History of surgery (04/25/17) 01/10/2017 Fistulogram; 04/25/2017 Fistulogram, catheter placement - attempted dialysis access declot History of transcatheter aortic valve replacement (TAVR) (01/09/22) Hx of arthroscopy of right knee Hx of CABG (~01/2009) 3 vessel Hx of colonoscopy 12/19/2009 Family History Father , 67 Diabetes mellitus DMII. 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 [employer] other: 2 children physical activity: none alcohol intake frequency: former alcohol drinker substance use type: does not use MEDS/ALLERGIES Home Medications and Allergies Home Medications Medication Instructions Recorded Confirmed Type aspirin 81 mg tablet,delayed 81 mg PO QDAY tab 03/04/15 03/11/22 History release CPAP Machine and Associated #1 each 11/14/17 03/11/22 Rx supplies primidone 50 mg tablet 75 mg PO BID tab 03/29/20 03/11/22 History pantoprazole 40 mg tablet,delayed 40 mg PO BID 60 Days #120 tab 12/22/20 03/11/22 Rx release clopidogrel 75 mg tablet (Plavix) 75 mg PO QDAY 03/22/21 03/11/22 History atorvastatin 40 mg tablet (Lipitor) 40 mg PO QDAY #90 tab 11/29/21 03/11/22 Rx metoprolol succinate 25 mg 12.5 mg PO QDAY #60 tab 02/15/22 03/11/22 Rx tablet,extended release 24 hr baclofen 5 mg tablet 5 mg PO TID PRN #20 tab 03/09/22 03/11/22 Rx budesonide 90 mcg/actuation breath 2 inh INHALATION BID #1 ea 03/09/22 03/11/22 Rx activated powder inhaler (Pulmicort Flexhaler) lisinopril 5 mg tablet 5 mg PO QDAY 03/09/22 03/11/22 History tramadol 50 mg tablet 50 mg PO BID PRN #30 tab 03/09/22 03/11/22 Rx sucroferric oxyhydroxide 500 mg 500 mg PO TID 03/11/22 03/11/22 History chewable tablet (Velphoro) Allergies Allergy/AdvReac Type Severity Reaction Status Date / Time morphine AdvReac Mild Nausea Verified 03/09/22 16:01 Physical Examination Vital Signs Vital signs: Temp Pulse Resp BP Pulse Ox 36.6 C 93 H 16 154/87 95 03/12/22 07:58 03/12/22 07:58 03/12/22 07:58 03/12/22 07:58 03/12/22 07:58 EENT EENT: ATNC, PERRL and mucous membranes dry Neck Neck: JVD and no carotid bruit Respiratory Respiratory: course breath sounds Cardiovascular Cardiology: holosystolic murmur, no edema and regular rhythm Integumentary Integumentary: no rash Neurologic Neurologic: no focal deficit, no asterixis and confused Psychiatric Psychiatric: depressed (labile mood) Results Lab Results Result Diagrams: 03/12/22 05:28 03/12/22 05:28 Lab results: February A/P Assessment and plan (1) ESRD on hemodialysis: Assessment and plan: HD q MWF Status: Chronic Comment: F/U with Dr Skelton at [facility] outpatient HD (2) Acute on chronic systolic CHF (congestive heart failure): Status: Acute Comment: BNP greatly elevated Recent TAVR Narrative A/P Narrative: This patient's biggest medical problem is altered ration of mental status. Tramadol and baclofen could theoretically cause this and have been in the limit needed upon admission. My bigger concern would be dementia. He is a perfect set up for Jason Ger disease secondary to COVID vaccination. This is a reported complication and may be precipitated by recurrent COVID infection which she had back in December. To my mind, while he is clearly fluid overloaded, in the absence of marked hypoxia I do not understand how this would cause alteration in mental st atus. My recommendation would be a complete dementia work-up if his mental status does not improve after dialysis (which I doubt it will). This should include CSF serologies and VDRL with the 14-3-3 protein tau protein. Plan of Treatment: HD with extra fluid removal today Time Spent With Patient Time: Total time spent is greater than 50% in coordination of care (as documented) at patient's floor/unit and/or counseling patient: Total time spent with greater than 50% in coordination of care (as documented) at patient's floor/unit and/or counseling patient:: 35 - 50 minutes Critical Care Time: No Attestation: Patient was seen on AM rounds and confirmed HD orders received by HD staff
[2022-03-12] MEDS: HEPARIN 5,000 UNIT/ML VIAL SQ SCH ×2 (08:42→20:59)
[2022-03-12] MEDS: LISINOPRIL 5 MG TABLET PO SCH (08:42)
[2022-03-12] MEDS: PRIMIDONE 50 MG TABLET PO SCH ×2 (08:42→20:59)
[2022-03-12] MEDS: DOCUSATE SODIUM 100 MG CAPSULE PO SCH ×3 (08:43→20:59)
[2022-03-12] MEDS: METOPROLOL SUCCINATE 25 MG TAB.XL.24H PO SCH (08:43)
[2022-03-12] MEDS: ATORVASTATIN 40 MG TABLET PO SCH (08:43)
[2022-03-12] MEDS: CLOPIDOGREL 75 MG TABLET PO SCH (08:43)
[2022-03-12] MEDS: ASPIRIN 81 MG TAB.CHEW PO SCH (08:51)
[2022-03-12] MEDS: BUDESONIDE 1 PUFF INHALER INH SCH ×2 (08:58→21:00)
--- NOTE | 2022-03-12 10:41 | Internal Med Progress Note ---
SUBJECTIVE Subjective Patient information: Note initiated : 03/12/22 at 10:40 am Service Date, if different from initiated Date: [] Patient: Stuart Torres 71 y/o M admitted on 03/11/22 for lethargic, confusion. Chief Complaint: [] Interval history: This is a 71-year-old gentleman with a history of chronic systolic heart failure, status post TAVR, ESRD on dialysis, coronary artery heart disease, atherosclerosis, was brought to the ER because of worsening confusion and tiredness. Patient had worsening hiccups ill a week ago was evaluated by primary care and started on tramadol and baclofen. Patient was brought to the ER due to confusion as per the family patient appears to obtunded and admitted to our facility for further management. ER physician discussed with the nephrology and planning for dialysis. Initial work-up in the ER was unremarkable for any ischemia or infection 03/12 Patient is oriented x1 able to answer some questions able to follow some commands but otherwise drowsy and sleepy Review of systems Oriented x2 1 and able to answer some yes or no questions Denied any respiratory distress or abdominal distress or pain anywhere Physical exam Patient is oriented x1 able to answer some questions Eyes: normal appearance, no scleral icterus. Neck: full ROM Respiratory bibasilar crackles Cardiovascular: Stroke murmur S1-S2 heard GI/Abdominal: soft, nontender, no guarding. Extremities: full range of motion, nontender. Neurological: Weak bilateral extremities no focal deficit Psychiatric: No hallucinations or delusions noted Skin: warm, normal color Constitutional Vitals: Vital Signs Temp Pulse Resp BP Pulse Ox 97.9 F 93 H 16 154/87 95 03/12/22 07:58 03/12/22 07:58 03/12/22 07:58 03/12/22 07:58 03/12/22 07:58 Period Temp Pulse Resp BP Sys/Eastman Pulse Ox Last 24 Hr 97.1 F-98.2 F 44-97 09-11 136-187/74-123 80-100 Intake and Output 03/11/22 03/12/22 03/12/22 21:59 05:59 13:59 Intake Total 0 Output Total 0 Balance 0 Weight 89.902 kg Intake & Output: Intake & Output 03/11/22 03/12/22 03/12/22 21:59 05:59 13:59 Intake Total 0 Output Total 0 Balance 0 Weight 89.902 kg Intake: Oral 0 Output: Void Amount 0 OBJ DATA Labs CBC & Chem 7: 03/12/22 05:28 03/12/22 05:28 Labs: Abnormal Lab Results 03/12/22 03/12/22 03/12/22 05:28 05:28 05:28 RBC 3.15 L Hgb 10.2 L Hct 32.6 L MCV 103.5 H MCHC RDW 21.6 H Lymph % (Auto) 14.9 L Lymph # (Auto) 1.10 L Real # (Auto) ESR 89 H POC VBG pH POC VBG pCO2 at Temp POC VBG pO2 POC VBG HCO3 POC VBG Total CO2 POC Venous O2 Sat POC VBG Base Excess BUN 34 H Creatinine 6.4 H* Glucose Calcium 8.4 L Alkaline Phosphatase 143 H NT-Pro-B Natriuret Pep 10503.0 H Globulin 4.1 H Albumin/Globulin Ratio 0.8 L Procalcitonin PTH Intact 178.6 H 03/12/22 03/11/22 03/11/22 05:27 15:55 15:24 RBC Hgb Hct MCV MCHC RDW Lymph % (Auto) Lymph # (Auto) Real # (Auto) ESR POC VBG pH 7.50 H POC VBG pCO2 at Temp 40.2 L POC VBG pO2 52 H POC VBG HCO3 31.1 H POC VBG Total CO2 32.0 H POC Venous O2 Sat 89.0 H POC VBG Base Excess 8.0 H* BUN 36 H Creatinine 5.9 H* Glucose 122 H Calcium 8.4 L Alkaline Phosphatase 149 H NT-Pro-B Natriuret Pep Globulin 4.2 H Albumin/Globulin Ratio 0.8 L Procalcitonin 0.15 H PTH Intact 03/11/22 15:24 RBC 3.19 L Hgb 9.8 L Hct 32.6 L MCV 102.2 H MCHC 30.1 L RDW 21.5 H Lymph % (Auto) 13.6 L Lymph # (Auto) 1.10 L Real # (Auto) 0.97 H ESR POC VBG pH POC VBG pCO2 at Temp POC VBG pO2 POC VBG HCO3 POC VBG Total CO2 POC Venous O2 Sat POC VBG Base Excess BUN Creatinine Glucose Calcium Alkaline Phosphatase NT-Pro-B Natriuret Pep Globulin Albumin/Globulin Ratio Procalcitonin PTH Intact Meds: Medications Acetaminophen (Acetaminophen 325 Mg Tablet) 650 mg PO Q6HP PRN; Protocol PRN Reason: Per Pain Protocol/Fever > 101 Albuterol Sulfate (Albuterol Sulfate 2.5 Mg/3 Ml Nebulizer) 2.5 mg NEB Q2HP PRN PRN Reason: Shortness Of Breath Aspirin (Aspirin 81 Mg Tab.Chew) 81 mg PO DAILY [facility] Last Admin: 03/12/22 08:51 Dose: 81 mg Documented by: Atorvastatin Calcium (Atorvastatin 40 Mg Tablet) 40 mg PO QDAY [facility] Last Admin: 03/12/22 08:43 Dose: 40 mg Documented by: Budesonide (Budesonide 1 Puff Inhaler) 2 puff INH BID [facility] Last Admin: 03/12/22 08:58 Dose: Not Given Documented by: Clopidogrel Bisulfate (Clopidogrel 75 Mg Tablet) 75 mg PO QDAY [facility] Last Admin: 03/12/22 08:43 Dose: 75 mg Documented by: Dextrose (Dextrose 50% 50 Ml Vial) 0 ml IV UD PRN PRN Reason: Per Sliding Scale Diagnostic Test (Pha) (Accu-Chek 1 Each Strip) 1 each FS [facility] Last Admin: 03/12/22 07:29 Dose: 1 each Documented by: Diltiazem HCl (Diltiazem 25 Mg/5 Ml Vial) 10 mg IV Q4HP PRN PRN Reason: Tachyarrhythmias Docusate Sodium (Docusate Sodium 100 Mg Capsule) 100 mg PO BID [facility] Last Admin: 03/12/22 08:55 Dose: Not Given Documented by: Glucose (Dextrose 31 Gm Oral.Susp) 15 gm PO PRN PRN PRN Reason: Hypoglycemia Heparin Sodium (Porcine) (Heparin 5,000 Unit/Ml Vial) 5,000 unit SQ Q12 [facility] Last Admin: 03/12/22 08:42 Dose: 5,000 unit Documented by: Hydralazine HCl (Hydralazine 20 Mg/Ml Vial) 10 mg IV Q4-6HP PRN PRN Reason: Hypertension Insulin Human Lispro (Insulin Lispro 1 Unit/0.01 Ml Unit) 0 unit SQ [facility]; Protocol Last Admin: 03/12/22 07:29 Dose: Not Given Documented by: Lisinopril (Lisinopril 5 Mg Tablet) 5 mg PO QDAY [facility] Last Admin: 03/12/22 08:42 Dose: 5 mg Documented by: Melatonin (Melatonin 3 Mg Tablet) 3 mg PO HSP PRN PRN Reason: Insomnia Metoprolol Succinate (Metoprolol Succinate 25 Mg Tab.Xl.24h) 12.5 mg PO QDAY [facility] Last Admin: 03/12/22 08:43 Dose: 12.5 mg Documented by: Ondansetron HCl (Ondansetron 4 Mg/2 Ml Vial) 4 mg IV Q6HP PRN PRN Reason: Nausea And Vomiting Sucroferric Oxyhydroxide [ Velphoro] 500 Mg Tablet 1 dose PO TIDCC [facility] Last Admin: 03/12/22 08:51 Dose: Not Given Documented by: Primidone (Primidone 50 Mg Tablet) 75 mg PO BID [facility] Last Admin: 03/12/22 08:42 Dose: 75 mg Documented by: Prochlorperazine (Prochlorperazine 10 Mg/2 Ml Vial) 5 mg IV Q4HP PRN PRN Reason: Nausea And Vomiting Quetiapine Fumarate (Quetiapine 25 Mg Tablet) 12.5 mg PO HSP PRN PRN Reason: iNSOMNIA-2nd option Senna (Sennosides 1 Tablet) 2 tab PO HS [facility] Last Admin: 03/11/22 21:59 Dose: Not Given Documented by: Sodium Chloride (0.9 % Sodium Chloride 10 Ml Syringe) 10 ml IV Q8 [facility] Last Admin: 03/12/22 05:07 Dose: 10 ml Documented by: A/P Narrative Plan of Treatment: Acute encephalopathy due to medications History of ESRD Patient was started on tramadol and baclofen last week Patient started tired and confused last 48 hours Plan We will continue neuro check We will hold the baclofen and tramadol Monitor mentation If he is not improving in the next 24-hour we should consider alternate diagnos is and MRI No signs of infections Acute congestive heart failure and ESRD ER physician consulted nephrology and planning for dialysis today mwf schedule usually Monitor electrolytes and telemetry monitoring History of chronic systolic heart failure Status post TAVR history of left ventricular ejection fraction 35% and which improved to 45 to 50% post TAVR Dialysis as mentioned Will monitor oxygenation History of vascular disease Coronary artery disease, carotid atherosclerosis, CKD on hemodialysis History of subdural hematoma in 2018 COVID-19 infection recently Patient was diagnosed with COVID-19 2 weeks ago has been recovering from it DVT prophylaxis-subcu heparin CODE STATUS-full code Expect length of stay 1-2 Time Spent With Patient Time: Total time spent is greater than 50% in coordination of care (as documented) at patient's floor/unit and/or counseling patient: QUALITY VTE Deep Vein Thrombosis/Pulmonary Embolism Present on Admission: No
--- NOTE | 2022-03-12 15:58 | Nephrology Procedure Note ---
Procedure Note Patient information: Note initiated : 03/12/22 at 3:53 pm Service Date, if different from initiated Date: [] Patient: Stuart Torres 71 y/o M admitted on 03/11/22 for lethargic, confusion. Chief Complaint: [] Date of procedure: 03/12/22 Procedure: [facility] HD / Acute HD Patient was seen on AM rounds and agin during HD. Lethargic with sluggish speech but can be understood. (+) JVD ISADORA 3/6 minimal edema Increased u/f goal to 4 kg Follow up Isolated U/F and repeat CXR tomorrow Anesthesia: none Surgeon: Odell Tavares Estimated blood loss: 0 Pathology: none sent Condition: stable Disposition: floor
[2022-03-12] MEDS: SENNOSIDES 1 TABLET PO SCH (20:59)
[2022-03-13] MEDS: 0.9 % SODIUM CHLORIDE 10 ML SYRINGE IV SCH ×3 (05:02→20:05)
[2022-03-13 06:32] LABS: Basophils # (Auto) 0.11 K/mcL (0.00-0.30); Basophils % (Auto) 1.4 % (0.0-2.0); Eosinophils # (Auto) 0.07 K/mcL (0.00-0.70); Eosinophils % (Auto) 0.9 % (0.0-7.0); Hematocrit 35.1 % (40.1-51.0); Hemoglobin 10.9 g/dL (13.7-17.5); Lymphocytes # (Auto) 0.98 K/mcL (1.50-4.80); Lymphocytes % (Auto) 12.6 % (15.5-49.0); Mean Corpuscular HGB Conc 31.1 g/dL (31.0-36.0); Mean Platelet Volume 9.8 fL (7.4-10.4); Monocytes % (Auto) 14.1 % (1.0-12.0); Neutrophils % (Auto) 70.4 % (38.0-78.0); Platelet Count 275 K/mcL (140-440); RBC 3.51 M/mcL (4.63-6.08); Red Cell Distribution Width 20.5 % (11.5-14.5); WBC 7.8 K/mcL (4.5-11.0)
[2022-03-13 06:58] LABS: ALT/SGPT 10 U/L (<40); AST/SGOT 17 U/L (<40); Albumin 3.5 gm/dL (3.2-5.2); Albumin/Globulin Ratio 0.8 (1.0-2.3); Alkaline Phosphatase 150 U/L (39-117); Bilirubin,Total 0.8 mg/dL (0.1-1.0); Blood Urea Nitrogen 19 mg/dL (8-23); Calcium 8.7 mg/dL (8.6-10.4); Carbon Dioxide 26 mmol/L (22-30); Chloride 94 mmol/L (96-108); Globulin 4.4 gm/dL (2.2-3.7); Glomerular Filtration Rate 12; Glucose 81 mg/dL (70-105)
[2022-03-13] MEDS: INSULIN LISPRO 1 UNIT/0.01 ML UNIT SQ SCH ×4 (07:32→20:08)
--- NOTE | 2022-03-13 07:35 | Nephrology Progress Note ---
SUBJECTIVE Subjective Patient information: Note initiated : 03/13/22 at 7:31 am Service Date, if different from initiated Date: [] Patient: Stuart Torres 71 y/o M admitted on 03/11/22 for lethargic, confusion. Chief Complaint: [] Principal diagnosis: ESRD Interval history: Patient underwent HD yesterday with max tolerated fluid removal ~3.5 liters with some cramping. Plan today is additional U/F and then repeat CXR Echo to assess LVEF post TAVR Seen at the start of Isolated U/F treatment BP lower ~107/67 Vital Signs Temp Pulse Pulse Resp BP BP BP 03/13/22 07:25 36.2 C 83 20 03/13/22 03:20 36.2 C 88 24 H 03/12/22 23:45 36.2 C 88 26 H 03/12/22 22:03 88 18 03/12/22 20:00 03/12/22 19:17 36.7 C 92 H 30 H 03/12/22 16:10 36.8 C 99 H 134/52 03/12/22 16:00 36.9 C 93 H 85 20 148/79 148/79 03/12/22 15:45 36.9 C 104 H 187/68 03/12/22 15:30 90 180/92 03/12/22 15:15 87 163/70 03/12/22 15:00 93 H 151/64 03/12/22 14:45 89 202/79 03/12/22 14:30 88 188/57 03/12/22 14:15 88 188/54 03/12/22 14:00 87 178/91 03/12/22 13:45 86 186/55 03/12/22 13:30 86 187/68 03/12/22 13:15 84 176/71 03/12/22 13:00 83 172/60 03/12/22 12:45 36.9 C 87 168/91 03/12/22 12:00 36.8 C 86 14 134/74 03/12/22 07:58 36.6 C 93 H 16 154/87 BP Pulse Ox 03/13/22 07:25 112/68 96 03/13/22 03:20 141/78 97 03/12/22 23:45 88/54 96 03/12/22 22:03 96 03/12/22 20:00 95 03/12/22 19:17 98/65 94 03/12/22 16:10 03/12/22 16:00 97 03/12/22 15:45 03/12/22 15:30 03/12/22 15:15 03/12/22 15:00 03/12/22 14:45 03/12/22 14:30 03/12/22 14:15 03/12/22 14:00 03/12/22 13:45 03/12/22 13:30 03/12/22 13:15 03/12/22 13:00 03/12/22 12:45 03/12/22 12:00 97 03/12/22 07:58 95 Intake and Output 03/12/22 03/13/22 03/13/22 21:59 05:59 13:59 Intake Total 20 100 Output Total 3300 Balance -3280 100 Intake: Oral 20 100 Output: Hemodialysis UF 3300 Other: Meal Dinner Percent of Meal Consumed 25% Feeding Ability Assist with Tray Set Up Weight 86.999 kg proBNP 24,600 Procal increased ~2-fold ESR 89 Echo (03/12/22) reading pending Pertinent ROS: N/A Additional PMFSH (Level 3 Only): N/A Constitutional Vitals: Vital Signs Temp Pulse Resp BP Pulse Ox 36.2 C 83 20 112/68 96 03/13/22 07:25 03/13/22 07:25 03/13/22 07:25 03/13/22 07:25 03/13/22 07:25 Period Temp Pulse Resp BP Sys/Eastman Pulse Ox Last 24 Hr 36.2 C-36.9 C 83-104 14-30 88-202/52-92 94-97 Intake and Output 03/12/22 03/13/22 03/13/22 21:59 05:59 13:59 Intake Total 20 100 Output Total 3300 Balance -3280 100 Weight 86.999 kg Intake & Output: Intake & Output 03/12/22 03/13/22 03/13/22 21:59 05:59 13:59 Intake Total 20 100 Output Total 3300 Balance -3280 100 Weight 86.999 kg Intake: Oral 20 100 Output: Hemodialysis UF 3300 Other: Meal Dinner Percent of Meal Consumed 25% Feeding Ability Assist with Tray Set Up General appearance: average body habitus and no acute distress Head Head exam: Present normal inspection Eye Eye exam: Present EOMI, normal appearance and PERRL Pupils: Present PERRL Respiratory Respiratory exam: Present normal respiratory exam Cardiovascular Cardiovascular exam: Present JVD, RRR, +S1, +S2 and systolic murmur (3/6 ISADORA) GI/Abdominal GI/Abdominal exam: Present normal bowel sounds Extremities Exam Extremities exam: Absent pedal edema Neurological Exam Neurological exam: Present alert (more alert), CN II-XII intact and oriented X3 Skin Additional comments: ecchymosis A/P Assessment and plan (1) Acute on chronic systolic CHF (congestive heart failure): Status: Acute Comment: BNP greatly elevated Recent TAVR (2) ESRD on hemodialysis: Status: Chronic Comment: F/U with Dr Skelton at [facility] outpatient HD (3) Encephalopathy: Status: Acute Comment: Seems drug related Narrative A/P Narrative: Follow up on covid serologies, ECHO New Dry Weight Follow up CXR As he was driving himself to and fro HD, needs family to bring and PROBABLY HOME HEALTH Plan of Treatment: As per Hospital medicine Avoid Tramadol and muscle relaxants in this patient If no better mental status cox, I would continue dementia w/u, but for now improvement with time suggests adverse Rx effect. Adjust dry weight due to CXR abnormalities and proBNP > 24K Review pending Echo report Time Spent With Patient Time: Total time spent is greater than 50% in coordination of care (as documented) at patient's floor/unit and/or counseling patient: Attestation: Seen on HD today
[2022-03-13] MEDS: ASPIRIN 81 MG TAB.CHEW PO SCH (08:16)
[2022-03-13] MEDS: PRIMIDONE 50 MG TABLET PO SCH ×2 (08:16→20:04)
[2022-03-13] MEDS: CLOPIDOGREL 75 MG TABLET PO SCH (08:16)
[2022-03-13] MEDS: BUDESONIDE 1 PUFF INHALER INH SCH ×2 (08:17→20:08)
[2022-03-13] MEDS: HEPARIN 5,000 UNIT/ML VIAL SQ SCH ×2 (08:17→20:05)
[2022-03-13] MEDS: DOCUSATE SODIUM 100 MG CAPSULE PO SCH ×2 (08:17→20:05)
[2022-03-13] MEDS: ATORVASTATIN 40 MG TABLET PO SCH (08:22)
[2022-03-13] MEDS: METOPROLOL SUCCINATE 25 MG TAB.XL.24H PO SCH (08:26)
[2022-03-13] MEDS: LISINOPRIL 5 MG TABLET PO SCH (08:27)
--- NOTE | 2022-03-13 11:45 | Internal Med Progress Note ---
SUBJECTIVE Subjective Patient information: Note initiated : 03/13/22 at 11:41 am Service Date, if different from initiated Date: [] Patient: Stuart Torres 71 y/o M admitted on 03/11/22 for lethargic, confusion. Chief Complaint: [] Principal diagnosis: ESRD Interval history: Interval history: This is a 71-year-old gentleman with a history of chronic systolic heart failure, status post TAVR, ESRD on dialysis, coronary artery heart disease, atherosclerosis, was brought to the ER because of worsening confusion and tired ness. Patient had worsening hiccups ill a week ago was evaluated by primary care and started on tramadol and baclofen. Patient was brought to the ER due to confusion as per the family patient appears to obtunded and admitted to our facility for further management. ER physician discussed with the nephrology and planning for dialysis. Initial work-up in the ER was unremarkable for any ischemia or infection 03/12 Patient is oriented x1 able to answer some questions able to follow some commands but otherwise drowsy and sleepy 03/13: Patient's mentation is greatly improved and currently alert and oriented x4. Group Program Manager Dr. Tavares order hemodialysis yesterday and today. If patient's mentations continue to improve, he will be discharged tomorrow and will resume outpatients hemodialysis. DC baclofen and tramadol which were thought to be the culprits of his delirium/encephalopathy. Constitutional Vitals: Vital Signs Temp Pulse Resp BP Pulse Ox 36.2 C 83 20 112/68 96 03/13/22 07:25 03/13/22 07:25 03/13/22 07:25 03/13/22 07:25 03/13/22 07:25 Period Temp Pulse Resp BP Sys/Eastman Pulse Ox Last 24 Hr 36.2 C-36.9 C 83-104 14-30 88-202/52-92 94-97 Intake and Output 03/12/22 03/13/22 03/13/22 21:59 05:59 13:59 Intake Total 20 100 120 Output Total 3300 Balance -3280 100 120 Weight 86.999 kg Intake & Output: Intake & Output 03/12/22 03/13/22 03/13/22 21:59 05:59 13:59 Intake Total 20 100 120 Output Total 3300 Balance -3280 100 120 Weight 86.999 kg Intake: Oral 20 100 120 Output: Hemodialysis UF 3300 Other: Meal Dinner Breakfast Percent of Meal Consumed 25% 75% Feeding Ability Assist with Tray Set Up Assist with Tray Set Up Head Head exam: Present atraumatic and normal inspection Eye Eye exam: Present normal appearance ENT ENT exam: Present mucous membranes moist, normal exam and normal external ear exam Neck Neck exam: Present normal inspection Respiratory Respiratory exam: Present normal respiratory exam Cardiovascular Cardiovascular exam: Present normal rate and rhythm GI/Abdominal GI/Abdominal exam: Present normal bowel sounds Extremities Exam Extremities exam: Present full ROM Additional comments: AV fistula right upper extremity Back Exam Back exam: Present normal inspection Neurological Exam Neurological exam: Present alert and oriented X3 Skin Skin exam: Present intact and warm OBJ DATA Labs CBC & Chem 7: 03/13/22 05:17 03/13/22 05:17 Labs: Abnormal Lab Results 03/13/22 03/13/22 03/12/22 05:17 05:17 05:28 RBC 3.51 L Hgb 10.9 L Hct 35.1 L MCV MCHC RDW 20.5 H Immature Gran % (Auto) 0.6 H Lymph % (Auto) 12.6 L [place] % (Auto) 14.1 H Lymph # (Auto) 0.98 L [place] # (Auto) 1.10 H ESR POC VBG pH POC VBG pCO2 at Temp POC VBG pO2 POC VBG HCO3 POC VBG Total CO2 POC Venous O2 Sat POC VBG Base Excess Chloride 94 L BUN Creatinine 4.5 H Glucose Calcium Alkaline Phosphatase 150 H NT-Pro-B Natriuret Pep Globulin 4.4 H Albumin/Globulin Ratio 0.8 L Procalcitonin PTH Intact 178.6 H 03/12/22 03/12/22 03/12/22 05:28 05:28 05:27 RBC 3.15 L Hgb 10.2 L Hct 32.6 L MCV 103.5 H MCHC RDW 21.6 H Immature Gran % (Auto) Lymph % (Auto) 14.9 L [place] % (Auto) Lymph # (Auto) 1.10 L [place] # (Auto) ESR 89 H POC VBG pH POC VBG pCO2 at Temp POC VBG pO2 POC VBG HCO3 POC VBG Total CO2 POC Venous O2 Sat POC VBG Base Excess Chloride BUN 34 H Creatinine 6.4 H* Glucose Calcium 8.4 L Alkaline Phosphatase 143 H NT-Pro-B Natriuret Pep 33739.0 H Globulin 4.1 H Albumin/Globulin Ratio 0.8 L Procalcitonin 0.15 H PTH Intact 03/11/22 03/11/22 03/11/22 15:55 15:24 15:24 RBC 3.19 L Hgb 9.8 L Hct 32.6 L MCV 102.2 H MCHC 30.1 L RDW 21.5 H Immature Gran % (Auto) Lymph % (Auto) 13.6 L [place] % (Auto) Lymph # (Auto) 1.10 L [place] # (Auto) 0.97 H ESR POC VBG pH 7.50 H POC VBG pCO2 at Temp 40.2 L POC VBG pO2 52 H POC VBG HCO3 31.1 H POC VBG Total CO2 32.0 H POC Venous O2 Sat 89.0 H POC VBG Base Excess 8.0 H* Chloride BUN 36 H Creatinine 5.9 H* Glucose 122 H Calcium 8.4 L Alkaline Phosphatase 149 H NT-Pro-B Natriuret Pep Globulin 4.2 H Albumin/Globulin Ratio 0.8 L Procalcitonin PTH Intact Meds: Medications Acetaminophen (Acetaminophen 325 Mg Tablet) 650 mg PO Q6HP PRN; Protocol PRN Reason: Per Pain Protocol/Fever > 101 Albuterol Sulfate (Albuterol Sulfate 2.5 Mg/3 Ml Nebulizer) 2.5 mg NEB Q2HP PRN PRN Reason: Shortness Of Breath Aspirin (Aspirin 81 Mg Tab.Chew) 81 mg PO DAILY [facility] Last Admin: 03/13/22 08:16 Dose: 81 mg Documented by: Atorvastatin Calcium (Atorvastatin 40 Mg Tablet) 40 mg PO QDAY [facility] Last Admin: 03/13/22 08:22 Dose: Not Given Documented by: Budesonide (Budesonide 1 Puff Inhaler) 2 puff INH BID [facility] Last Admin: 03/13/22 08:17 Dose: Not Given Documented by: Clopidogrel Bisulfate (Clopidogrel 75 Mg Tablet) 75 mg PO QDAY [facility] Last Admin: 03/13/22 08:16 Dose: 75 mg Documented by: Dextrose (Dextrose 50% 50 Ml Vial) 0 ml IV UD PRN PRN Reason: Per Sliding Scale Diagnostic Test (Pha) (Accu-Chek 1 Each Strip) 1 each FS ACHS [facility] Last Admin: 03/13/22 11:21 Dose: 1 each Documented by: Diltiazem HCl (Diltiazem 25 Mg/5 Ml Vial) 10 mg IV Q4HP PRN PRN Reason: Tachyarrhythmias Docusate Sodium (Docusate Sodium 100 Mg Capsule) 100 mg PO BID [facility] Last Admin: 03/13/22 08:17 Dose: 100 mg Documented by: Glucose (Dextrose 31 Gm Oral.Susp) 15 gm PO PRN PRN PRN Reason: Hypoglycemia Heparin Sodium (Porcine) (Heparin 5,000 Unit/Ml Vial) 5,000 unit SQ Q12 [facility] Last Admin: 03/13/22 08:17 Dose: 5,000 unit Documented by: Hydralazine HCl (Hydralazine 20 Mg/Ml Vial) 10 mg IV Q4-6HP PRN PRN Reason: Hypertension Insulin Human Lispro (Insulin Lispro 1 Unit/0.01 Ml Unit) 0 unit SQ ACHS [facility]; Protocol Last Admin: 03/13/22 11:21 Dose: Not Given Documented by: Lisinopril (Lisinopril 5 Mg Tablet) 5 mg PO QDAY [facility] Last Admin: 03/13/22 08:27 Dose: Not Given Documented by: Melatonin (Melatonin 3 Mg Tablet) 3 mg PO HSP PRN PRN Reason: Insomnia Metoprolol Succinate (Metoprolol Succinate 25 Mg Tab.Xl.24h) 12.5 mg PO QDAY [facility] Last Admin: 03/13/22 08:26 Dose: Not Given Documented by: Ondansetron HCl (Ondansetron 4 Mg/2 Ml Vial) 4 mg IV Q6HP PRN PRN Reason: Nausea And Vomiting Sucroferric Oxyhydroxide [ Velphoro] 500 Mg Tablet 1 dose PO TIDCC [facility] Last Admin: 03/13/22 08:16 Dose: 1 dose Documented by: Primidone (Primidone 50 Mg Tablet) 75 mg PO BID [facility] Last Admin: 03/13/22 08:16 Dose: 75 mg Documented by: Prochlorperazine (Prochlorperazine 10 Mg/2 Ml Vial) 5 mg IV Q4HP PRN PRN Reason: Nausea And Vomiting Quetiapine Fumarate (Quetiapine 25 Mg Tablet) 12.5 mg PO HSP PRN PRN Reason: iNSOMNIA-2nd option Senna (Sennosides 1 Tablet) 2 tab PO HS [facility] Last Admin: 03/12/22 20:59 Dose: 2 tab Documented by: Sodium Chloride (0.9 % Sodium Chloride 10 Ml Syringe) 10 ml IV Q8 [facility] Last Admin: 03/13/22 05:02 Dose: Not Given Documented by: A/P Assessment and plan (1) Encephalopathy: Status: Acute (2) Diabetes mellitus, type II: Status: Chronic Comment: No further hypoglycemic episodes, a1c is 5.2% He is on glipizide; he monitors what he eats; BSs are much improved with FBS of ~ 120 ct with current meds Will monitor Qualifiers: Diabetes mellitus complication status: without complication Diabetes mellitus terminal gauger insulin use: without care home use Qualified Code(s): E11.9 - Type 2 diabetes mellitus without complications (3) Obstructive sleep apnea treated with continuous positive airway pressure (CPAP): Status: Chronic (4) ESRD on hemodialysis: Status: Chronic (5) Hyperlipidemia: Status: Chronic (6) Hypertension, essential: Status: Chronic Narrative A/P Narrative: Assessment and Plans: 1. Acute delirium/encephalopathy: Believed to be secondary to medications, specifically baclofen and Tramadol. We will hold them indefinitely Continue to monitor his mentations, currently already back to her close to his baseline 2. ESRD on hemodialysis: Group Program Manager Dr. Tavares consulted, recs. appreciated HD yesterday 03/12 and today 03/13. Will discharge home tomorrow to resume outpatient hemodialysis 3. T2DM: Continue correctional scale insulin AC HS Accu-Chek AC HS Hypoglycemia protocol Diabetic diet 4. Essential hypertensions: Metoprolol succinate Lisinopril 5. Dyslipidemia: Continue Lipitor #6 obstructive sleep apnea on CPAP: Continue CPAP while patient is sleeping GI ppx: Not currently indicated DVT ppx: Heparin Code status: Full Prognosis: stable Disposition: inpatient med surg Time Spent With Patient Time: Total time spent is greater than 50% in coordination of care (as documented) at patient's floor/unit and/or counseling patient: Total time spent with greater than 50% in coordination of care (as documented) at patient's floor/unit and/or counseling patient:: 35 - 50 minutes Critical Care Time: No QUALITY VTE Deep Vein Thrombosis/Pulmonary Embolism Present on Admission: No
--- NOTE | 2022-03-13 15:34 | XRay Report ---
HISTORY: Congestive heart failure, lethargy, confusion FINDINGS: Lung volumes are relatively small due to suboptimal inspiration. The congestive heart failure with pulmonary edema has improved but not resolved since 03/11/22. There is still a small left-sided pleural effusion. The heart remains mildly enlarged. Postsurgical changes are again seen in the chest and neck. IMPRESSION: Improving congestive heart failure Interpreted and Authenticated by: Carmelo Cardoso 03/13/22
--- NOTE | 2022-03-13 19:39 | EKG ---
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
[2022-03-13] MEDS: SENNOSIDES 1 TABLET PO SCH (20:05)
[2022-03-14] MEDS: 0.9 % SODIUM CHLORIDE 10 ML SYRINGE IV SCH (05:27)
[2022-03-14 06:05] LABS: Basophils # (Auto) 0.12 K/mcL (0.00-0.30); Basophils % (Auto) 1.5 % (0.0-2.0); Eosinophils % (Auto) 1.2 % (0.0-7.0); Hemoglobin 11.8 g/dL (13.7-17.5); Lymphocytes # (Auto) 1.38 K/mcL (1.50-4.80); Lymphocytes % (Auto) 17.1 % (15.5-49.0); Mean Cell Volume 98.4 fL (80.0-100.0); Mean Corpuscular HGB Conc 31.1 g/dL (31.0-36.0); Monocytes # (Auto) 1.11 K/mcL (0.10-0.90); Monocytes % (Auto) 13.8 % (1.0-12.0); Neutrophils % (Auto) 65.9 % (38.0-78.0); Platelet Count 275 K/mcL (140-440); RBC 3.86 M/mcL (4.63-6.08); Red Cell Distribution Width 19.9 % (11.5-14.5); WBC 8.1 K/mcL (4.5-11.0)
[2022-03-14 06:49] LABS: ALT/SGPT 13 U/L (<40); AST/SGOT 19 U/L (<40); Albumin 3.5 gm/dL (3.2-5.2); Albumin/Globulin Ratio 0.7 (1.0-2.3); Alkaline Phosphatase 163 U/L (39-117); Bilirubin,Total 0.7 mg/dL (0.1-1.0); Blood Urea Nitrogen 45 mg/dL (8-23); Calcium 8.9 mg/dL (8.6-10.4); Carbon Dioxide 26 mmol/L (22-30); Chloride 94 mmol/L (96-108); Globulin 4.9 gm/dL (2.2-3.7); Glomerular Filtration Rate 8; Glucose 86 mg/dL (70-105)
--- NOTE | 2022-03-14 07:53 | Discharge Summary ---
Discharge Provider Provider IMPORTANT FOLLOW-UP INFORMATION FOR PCP: Patient information: Note initiated : 03/14/22 at 7:51 am Service Date, if different from initiated Date: [] Patient: Stuart Torres 71 y/o M admitted on 03/11/22 for lethargic, confusion. Chief Complaint: [] Date of admission: 03/11/22 21:21 Discharge date: 03/14/22 Primary care physician: Jevon Kerr MD Attending physician on admission: Malcolm Sherman Consults: 03/11/22 Consult to Physician [CONS] Stat Comment: Consulting Provider: Malcolm Sherman Reason For Exam: Physician to Consult Attending physician on discharge: Chi Thalia Pui COURSE Hospital Course Hospital course: Interval history: This is a 71-year-old gentleman with a history of chronic systolic heart failure, status post TAVR, ESRD on dialysis, coronary artery heart disease, atherosclerosis, was brought to the ER because of worsening confusion and tiredness. Patient had worsening hiccups ill a week ago was evaluated by primary care and started on tramadol and baclofen. Patient was brought to the ER due to confusion as per the family patient appears to obtunded and admitted to our facility for further management. ER physician discussed with the nephrology and planning for dialysis. Initial work-up in the ER was unremarkable for any ischemia or infection 03/12 Patient is oriented x1 able to answer some questions able to follow some commands but otherwise drowsy and sleepy 03/13: Patient's mentation is greatly improved and currently alert and oriented x4. Drafter Directional Survey Dr. Tavares order hemodialysis yesterday and today. If patient's mentations continue to improve, he will be discharged tomorrow and will resume outpatients hemodialysis. DC baclofen and tramadol which were thought to be the culprits of his delirium/encephalopathy. 03/14: Patient has reached clinical stability. Patient was being discharged to SNF for inpatient rehab therapy. Continue Saturday outpatient hemodialysis for end-stage renal disease. Continue to DC baclofen and tramadol. All questions were answered prior to patient being physically discharged. Discharge diagnosis: encephalopathy secondary to medications Time Spent with Patient Time attestation: Total time spent providing and/or coordinating discharge services: Time spent: Less than 30 minutes EXAM Constitutional Vitals: Temp Pulse Resp BP Pulse Ox 36.5 C 90 20 112/67 98 03/14/22 07:34 03/14/22 07:34 03/14/22 07:34 03/14/22 07:34 03/14/22 07:34 General appearance: cooperative and no acute distress Head Head exam: Present atraumatic and normocephalic Eye Eye exam: Present EOMI and PERRL ENT ENT exam: Present mucous membranes moist, normal exam and normal external ear exam Neck Neck exam: Present normal inspection; Absent lymphadenopathy, tenderness or thyromegaly Respiratory Respiratory exam: Absent accessory muscle use, respiratory distress or wheezes Cardiovascular Cardiovascular exam: Present normal rate and rhythm; Absent JVD GI/Abdominal GI/Abdominal exam: Present normal bowel sounds and soft; Absent organomegaly or tenderness Rectal Rectal exam: Present deferred Extremities Exam Extremities exam: Present full ROM, normal capillary refill and normal inspection; Absent tenderness Neurological Exam Neurological exam: Present alert, CN II-XII intact and oriented X3; Absent motor sensory deficit Psychiatric Psychiatric exam: Present normal affect and normal mood; Absent anxious or depressed Skin Skin exam: Present dry and intact Discharge Data Data Completed and Pending Labs on day of discharge: Labs from last 24 hours 03/14/22 03/14/22 03/11/22 05:17 05:16 15:24 WBC 8.1 RBC 3.86 L Hgb 11.8 L Hct 38.0 L MCV 98.4 MCH 30.6 MCHC 31.1 RDW 19.9 H Plt Count 275 MPV 10.0 Immature Gran % (Auto) 0.5 Neut % (Auto) 65.9 Lymph % (Auto) 17.1 [place] % (Auto) 13.8 H Eos % (Auto) 1.2 Baso % (Auto) 1.5 Lymph # (Auto) 1.38 L [place] # (Auto) 1.11 H Eos # (Auto) 0.10 Baso # (Auto) 0.12 Immature Gran # 0.04 Absolute Neutrophils 5.34 Sodium 136 Potassium 3.9 Chloride 94 L Carbon Dioxide 26 Anion Gap 16.0 BUN 45 H Creatinine 6.1 H* GFR Calculation 8 Glucose 86 Calcium 8.9 Magnesium 1.9 Total Bilirubin 0.7 AST 19 ALT 13 Alkaline Phosphatase 163 H Total Protein 8.4 Albumin 3.5 Globulin 4.9 H Albumin/Globulin Ratio 0.7 L SARS-CoV-2 IgG Ab Positive A SARS-CoV-2 IgM Ab Negative Discharge Plan Patient/Caregiver Discharge Instructions Activity: increase activity as tolerated Diet: Renal/Consistent Carbs Prescriptions: Continued pantoprazole 40 mg tablet,delayed release (DR/EC) 40 mg PO BID 60 Days Qty: 120 4RF Rx Instructions: Dialysis- 40 mg orally (40 mg delayed release tablet) 2 times a day atorvastatin [Lipitor] 40 mg tablet 40 mg PO QDAY Qty: 90 1RF aspirin 81 mg tablet,delayed release (DR/EC) 81 mg PO QDAY 0RF (DME) CPAP Machine and Associated supplies Qty: 1 0RF Dose Instruction: As directed Rx Instructions: As directed metoprolol succinate 25 mg tablet extended release 24 hr 12.5 mg PO QDAY Qty: 60 1RF lisinopril 5 mg tablet 5 mg PO QDAY 0RF Label Comments: [NO ORIGINAL SIG] Pulmicort Flexhaler 90 mcg/actuation aerosol powdr breath activated 2 inh inhalation BID Qty: 1 0RF primidone 50 mg tablet 75 mg PO BID 0RF Velphoro 500 mg Tablet,Chewable 500 mg PO TID 0RF clopidogrel [Plavix] 75 mg tablet 75 mg PO QDAY 0RF Discontinued tramadol 50 mg tablet 50 mg PO BID PRN (Reason: pain) Qty: 30 0RF baclofen 5 mg tablet 5 mg PO TID PRN (Reason: hiccups) Qty: 20 0RF Other Ambulatory Orders: OT Discharge Order (Routine) Location: None Selected Ordered By: Carmelo Mgcill Physical Therapy at Discharge - General (Routine) Location: None Selected Ordered By: Carmelo Mcgill Follow Up Plan Follow up with: Jevon Kerr MD [Primary Care Provider] - Patient Disposition: Xfer SNF Plan of Treatment: As per Hospital medicine Avoid Tramadol and muscle relaxants in this patient If no better mental status cox, I would continue dementia w/u, but for now improvement with time suggests adverse Rx effect. Adjust dry weight due to CXR abnormalities and proBNP > 24K Review pending Echo report Prognosis: Fair Rehab Potential: Good I certify that the patient requires SNF services: Yes Overall status at discharge: patient is progressing back to baseline Discharge Orders: Discharge Order (Routine); Ordered 03/14/22 Ordered By: Carmelo Mcgill QUALITY VTE Deep Vein Thrombosis/Pulmonary Embolism Present on Admission: No
[2022-03-14] MEDS: PRIMIDONE 50 MG TABLET PO SCH (08:07)
[2022-03-14] MEDS: ASPIRIN 81 MG TAB.CHEW PO SCH (08:08)
[2022-03-14] MEDS: CLOPIDOGREL 75 MG TABLET PO SCH (08:08)
[2022-03-14] MEDS: METOPROLOL SUCCINATE 25 MG TAB.XL.24H PO SCH (08:08)
[2022-03-14] MEDS: LISINOPRIL 5 MG TABLET PO SCH (08:08)
[2022-03-14] MEDS: ATORVASTATIN 40 MG TABLET PO SCH (08:08)
[2022-03-14] MEDS: HEPARIN 5,000 UNIT/ML VIAL SQ SCH (08:08)
[2022-03-14] MEDS: DOCUSATE SODIUM 100 MG CAPSULE PO SCH (08:08)
[2022-03-14] MEDS: INSULIN LISPRO 1 UNIT/0.01 ML UNIT SQ SCH (10:23)
--- NOTE | 2022-03-14 10:27 | Nephrology Progress Note ---
SUBJECTIVE Subjective Patient information: Note initiated : 03/14/22 at 10:22 am Service Date, if different from initiated Date: [] Patient: Stuart Torres 71 y/o M admitted on 03/11/22 for lethargic, confusion. Chief Complaint: [] Principal diagnosis: ESRD Interval history: Seen at the time of D/C Weak but more alert Family reports downward course mentally since 12/2021. Worsened by Tramadol and Baclofen (given for right hip pain and hiccoughs). Mental status is improving with discontinuation of these Rx and time. CXR looking better after aggressive U/F with HD Vital Signs Temp Pulse Pulse Resp BP BP BP 03/14/22 08:25 03/14/22 07:34 36.5 C 90 20 112/67 03/14/22 03:42 36.2 C 89 24 H 87/50 03/13/22 23:26 36.2 C 94 H 24 H 100/64 03/13/22 21:00 03/13/22 20:00 03/13/22 19:55 102/64 03/13/22 19:03 36.1 C 94 H 28 H 87/61 03/13/22 16:00 36.6 C 86 22 115/64 03/13/22 13:25 36.5 C 82 126/69 03/13/22 13:18 80 127/69 03/13/22 13:03 81 132/75 03/13/22 12:52 80 107/64 03/13/22 12:35 80 137/71 03/13/22 12:19 80 132/71 03/13/22 12:08 80 125/68 03/13/22 12:00 36.1 C 77 20 109/60 03/13/22 11:50 36.1 C 77 109/60 Pulse Ox 03/14/22 08:25 94 03/14/22 07:34 98 03/14/22 03:42 98 03/13/22 23:26 97 03/13/22 21:00 95 03/13/22 20:00 95 03/13/22 19:55 03/13/22 19:03 96 03/13/22 16:00 100 03/13/22 13:25 03/13/22 13:18 03/13/22 13:03 03/13/22 12:52 03/13/22 12:35 03/13/22 12:19 03/13/22 12:08 03/13/22 12:00 100 03/13/22 11:50 Intake and Output 03/13/22 03/14/22 03/14/22 21:59 05:59 13:59 Intake Total 500 350 320 Balance 500 350 320 Intake: Oral 500 350 320 Other: Meal Dinner Breakfast Percent of Meal Consumed 100% 100% Feeding Ability Assist with Tray Set Up Assist with Tray Set Up Weight 85.049 kg Pertinent ROS: Improved MS but all started with TAVR/Screened and afebrile. No signs or symptoms of CoVID-19in December Right hip pain persists Going to Inpatient rehab at [facility] Additional PMFSH (Level 3 Only): N/A Constitutional Vitals: Vital Signs Temp Pulse Resp BP Pulse Ox 36.5 C 90 20 112/67 94 03/14/22 07:34 03/14/22 07:34 03/14/22 07:34 03/14/22 07:34 03/14/22 08:25 Period Temp Pulse Resp BP Sys/Eastman Pulse Ox Last 24 Hr 36.1 C-36.6 C 77-94 20-28 87-137/50-75 94-100 Intake and Output 03/13/22 03/14/22 03/14/22 21:59 05:59 13:59 Intake Total 500 350 320 Balance 500 350 320 Weight 85.049 kg Intake & Output: Intake & Output 03/13/22 03/14/22 03/14/22 21:59 05:59 13:59 Intake Total 500 350 320 Balance 500 350 320 Weight 85.049 kg Intake: Oral 500 350 320 Other: Meal Dinner Breakfast Percent of Meal Consumed 100% 100% Feeding Ability Assist with Tray Set Up Assist with Tray Set Up General appearance: average body habitus and no acute distress ENT ENT exam: Present mucous membranes dry Neck Neck exam: Absent meningismus Respiratory Respiratory exam: Present normal respiratory exam Cardiovascular Cardiovascular exam: Present +S1, +S2 and systolic murmur (3/6 ISADORA) Extremities Exam Extremities exam: Absent calf tenderness or pedal edema Additional comments: weak Right hip pain Neurological Exam Neurological exam: Present CN II-XII intact and oriented X3 Additional comments: weakness Psychiatric Psychiatric exam: Present flat affect Skin Additional comments: Ecchymosis bilateral forarms A/P Assessment and plan (1) Right hip pain: Status: Acute Comment: Trial topical diclofenac gel BID prn available OTC (2) Acute on chronic systolic CHF (congestive heart failure): Status: Acute Comment: BNP greatly elevated Recent TAVR Weight decreased to 85 kg post HD with improved CXR (3) ESRD on hemodialysis: Status: Chronic Comment: F/U with Dr Skelton at [facility] outpatient HD Set dry wt at 85 kg (4) Encephalopathy: Status: Acute Comment: Seems drug related Follow up long Covid Plan Discharge Plan Patient/Caregiver Discharge Instructions Activity: increase activity as tolerated Diet: Renal/Consistent Carbs Prescriptions: Continued pantoprazole 40 mg tablet,delayed release (DR/EC) 40 mg PO BID 60 Days Qty: 120 4RF Rx Instructions: Dialysis- 40 mg orally (40 mg delayed release tablet) 2 times a day atorvastatin [Lipitor] 40 mg tablet 40 mg PO QDAY Qty: 90 1RF aspirin 81 mg tablet,delayed release (DR/EC) 81 mg PO QDAY 0RF (DME) CPAP Machine and Associated supplies Qty: 1 0RF Dose Instruction: As directed Rx Instructions: As directed metoprolol succinate 25 mg tablet extended release 24 hr 12.5 mg PO QDAY Qty: 60 1RF lisinopril 5 mg tablet 5 mg PO QDAY 0RF Label Comments: [NO ORIGINAL SIG] Pulmicort Flexhaler 90 mcg/actuation aerosol powdr breath activated 2 inh inhalation BID Qty: 1 0RF primidone 50 mg tablet 75 mg PO BID 0RF Velphoro 500 mg Tablet,Chewable 500 mg PO TID 0RF clopidogrel [Plavix] 75 mg tablet 75 mg PO QDAY 0RF Discontinued tramadol 50 mg tablet 50 mg PO BID PRN (Reason: pain) Qty: 30 0RF baclofen 5 mg tablet 5 mg PO TID PRN (Reason: hiccups) Qty: 20 0RF Narrative A/P Narrative: Lower dry wt 85 Follow up cardiac echo Follow up sars cv-19 serologies Topical diclofenac 2 times a day prn right hip pain Plan of Treatment: As per Hospital medicine Avoid Tramadol and muscle relaxants in this patient If no better mental status cox, I would continue dementia w/u, but for now improvement with time suggests adverse Rx effect. Adjust dry weight due to CXR abnormalities and proBNP > 24K Review pending Echo report Time Spent With Patient Time: Total time spent is greater than 50% in coordination of care (as documented) at patient's floor/unit and/or counseling patient: Attestation: Seen with family prior to discharge
[2022-03-14] MEDS: BUDESONIDE 1 PUFF INHALER INH SCH (10:39)
== END 2022-03-14 08:30 | DRG 91 ==
LOC: ED 14:56 → MEDSUR 21:21
PROVIDERS: ADMIT Internal Medicine; ATTEND Internal Medicine